=== PATIENT | female | born 1935 | race Caucasian/White ===

== ENCOUNTER 2016-10-07 22:27 | Emergency (ER) | payer OTHER ==
--- NOTE | 2016-10-07 23:00 | EDPHY ---
HPI/HX/ROS/PE/MDM Narrative: Chief complaint: Fall HPI: 80-year-old woman sustained a mechanical fall at her residence. Patient states that she was reaching for something when she fell from standing. States she landed on the floor. Patient is not currently oriented she is alert and is a poor historian. She is not able to recall events. Currently is complaining of pale and her coccyx. Denies headache. No neck pain. No numbness or weakness. Chest pain shortness of breath. No abdominal pain. ROS: Unobtainable secondary to the patient's confusion Physical exam: Gen: Awake, Alert, No Distress HEENT: 2 cm laceration on the right cheek, not through and through Nose: no rhinorrhea Eyes: PERRLA, EOMI Mouth: Moist mucosa Neck: Supple, no JVD Chest: nontender, lungs clear to auscultation Heart: S1, S2 normal, no murmur Abd: Soft, non-tender, no guarding Back: no CVA tenderness, no midline tenderness Ext: no edema, non-tender Skin: no rash Neuro: CN II-XII intact, Sensation grossly intact, Strength 5/5 in bilateral upper and lower extremities ED Course: CT head: Negative per Dr. Carter CT neck: Negative per Dr. Carter. Pelvis x-ray: No acute fractures Procedure: Laceration repair. Verbal consent was obtained from the patient. The 2 cm laceration on the right cheek was anesthetized in the usual fashion. The wound was irrigated, draped and explored to its base with a gloved finger. There were no deep structures involved. No tendon injury was identified. The wound was repaired with 3, 5-0 fast-absorbing gut sutures. The wound repair was uncomplicated. The procedure was performed by myself. Patient's daughters at the bedside. She states the patient is in her normal state of mentation and health. She will obtain urinalysis to make sure she does not have urinary tract infection given that she was admitted here several months ago for the same. If this is negative patient will be able to go home in the care of her daughter. - Data Points Medications Given: Discontinued Medications Ondansetron HCl (Zofran) 4 mg IVP EDNOW ONE Stop: 10/08/16 00:11 Last Admin: 10/08/16 00:10 Dose: 4 mg General Time Seen by Provider: 10/07/16 22:51 Initial Vital Signs: Initial Vital Signs Temperature (C) 36.9 C 10/07/16 22:27 Heart Rate 97 10/07/16 22:27 Respiratory Rate 16 10/07/16 22:27 Blood Pressure 130/60 H 10/07/16 22:27 O2 Sat (%) 89 L 10/07/16 22:27 O2 Delivery Mode Room Air Allergies/Adverse Reactions: Penicillins Allergy (Verified 07/25/14 20:17) Home Medications: Medication Instructions Recorded DULoxetine [Cymbalta 60 MG (*)] 60 mg PO BID 07/24/15 Meclizine HCl [Meclizine HCl 12.5 12.5 mg PO TID PRN 07/24/15 mg (*)] Simvastatin [Zocor] 40 mg PO HS 07/24/15 Ascorbic Acid [Vitamin C 500 mg 500 mg PO DAILY 08/31/15 (*)] Calcium Carbonate [Oyster Shell 500 mg PO BID 08/31/15 Calcium 500 mg (*)] Ferrous Sulfate [Ferrous Sulf 325 325 mg PO BIDMEAL 08/31/15 MG (*)] Lidocaine 5% [Lidoderm 5% Patch 1 ea TD DAILY PRN 08/31/15 (*)] Losartan Potassium [Cozaar 50 mg 50 mg PO DAILY 08/31/15 (*)] Omeprazole [Prilosec] 40 mg PO DAILY 08/31/15 Warfarin Sodium [Coumadin 3MG (*)] 1.5 mg PO SUTU@16 08/31/15 Warfarin Sodium [Coumadin 3MG (*)] 3 mg PO MOWETHFRSA@16 08/31/15 Acetaminophen [Tylenol 325mg (*)] 650 mg PO Q4 PRN #0 tab 09/04/15 Calcium Carbonate [Tums 500MG (*)] 500 - 1,000 mg PO Q2 PRN #0 tabchew 09/04/15 Aripiprazole 2 mg PO HS 05/09/16 Besifloxacin HCl [BESIVANCE] 1 drop RTEYE BID 05/09/16 Brimonidine Tartrate 1 drop RTEYE BID 05/09/16 Cyanocobalamin [Vitamin B12 (*)] 1,000 mcg PO DAILY 05/09/16 Losartan Potassium [Cozaar] 100 mg PO HS 05/09/16 Methylphenidate HCl 2.5 mg PO BIDDIUR 05/09/16 Nitrofurantoin Monohyd/M-Cryst 100 mg PO BID PRN 05/09/16 [Nitrofurantoin [place]-Macrocrystal] Timolol 0.5% [TIMOPTIC 0.5% (*)] 1 drops RTEYE BID 05/09/16 Acetaminophen [Tylenol 325mg (*)] 650 mg PO Q4 PRN #0 tab 05/12/16 Polyethylene Glycol 3350 [Miralax 17 gm PO DAILY PRN #0 pkt 05/31/16 17 gm (*)] Sennosides/Docusate Sodium 1 - 2 tab PO BID #0 tab 05/31/16 [Senokot-S] Vancomycin [Vancocin Oral Liquid] 125 mg PO QID #40 udl 05/31/16 Departure - Departure Disposition: Home, Routine, Self-Care Clinical Impression: Fall, Facial laceration Condition: Good Instructions: Fall Prevention for Older Adults (ED), Care For Your Absorbable Stitches (ED), Facial Laceration (ED) Additional Instructions: Use sutures are absorbable and do not need to be removed. Follow up with your primary care doctor in 3-4 days if you're not feeling well. Return to the emergency department for any concerns. Referrals: Rebekah Jackson MD [Primary Care Provider] - As per Instructions
[2016-10-07] MEDS ORDERED: ACETAMINOPHEN 500 MG TAB ONE (23:09)
[2016-10-07 23:16] VITALS: PULSE 97; RESP 16
--- NOTE | 2016-10-07 23:39 | CT ---
CT Brain Without Contrast 2328 hours History: Recent fall. Closed head injury. Rule out intracranial hemorrhage. Technique: Axial computed tomographic images of the brain without contrast. Images were reconstruct ed down to 1.25 mm slice thickness. Dose reduction techniques were utilized. Comparison the prior CT study of May 28, 2016. Findings: Ventricles, cisterns, and sulci are widened consistent with stable moderate atrophy. No hy drocephalus, masses, midline shift/herniation, or subdural hematomas. No intraparenchymal hemorrhage or mass effect. Stable moderate hypodensities are seen in the white matter of bilateral cerebral justina spheres. There is no acute peripheral cerebral infarct seen. Arteriosclerotic calcifications are no noble associated with distal ICA in the parasellar location bilaterally. Bone windows demonstrate no displaced fractures. Paranasal sinuses and mastoid air cells are clear. Impression: 1. Moderate atrophy. 2. No hemorrhage, mass effect, or definite acute peripheral infarct. 3. Mild to moderate microvascular ischemic disease. These findings were discussed by telephone with Dr. Prakash Soliz at 2344 hrs.
--- NOTE | 2016-10-07 23:44 | CT ---
CT Cervical Spine 2328 hours History: Recent trauma. Evaluate for possible cervical spine injury. Technique: Spiral imaging was obtained from the base of skull to the upper chest. Images were reconst ructed at 1.25 mm slice thickness. Images were reconstructed in multiple planes. Dose reduction techn iques were utilized. Findings: Vertebral body heights are well maintained. There are no subluxations. No fractures are see n. There is about 2 mm of anterior subluxation of C3 on C4. No additional subluxations are identified . There is reversal of the normal lordosis of the mid cervical spine that is probably chronic. Mild i ntervertebral disk space narrowing is present at C3-C4 and marked at C4-C5 with moderate to marked di sk space narrowing at C5-C6 and at C6-C7. There is mild bilateral facet hypertrophy at C2-C3, right-s ided facet fusion at C3-C4, moderate right-sided facet hypertrophy at C4-C5 and mild bilaterally at C 5-C6. There is also some mild to moderate bilateral facet hypertrophy at C7-T1.. Paravertebral soft t issues demonstrate no significant abnormality. Impression: 1. No acute osseous and amount is seen about the cervical spine. 2. Degenerative disk disease mid to lower cervical spine with findings most prominent at C4-C5 as det gaurang above. 3. Facet hypertrophy as detailed above. These findings were discussed by telephone with Dr. Prakash Soliz at 2344 hrs.
--- NOTE | 2016-10-07 23:46 | DX ---
Pelvis x-ray supine 2250 hours. History: Recent fall. Findings: Osseous structures appear to be intact without evidence of fracture. Hip joint spaces are n ormal as well as SI joints and symphysis. Mild degenerative changes are noted of the lower lumbar spi ne. Soft tissues are unremarkable. Impression: No acute osseous abnormality is seen about the pelvis.
[2016-10-07] MEDS ORDERED: ONDANSETRON 4 MG/2 ML VIAL ONE (23:57)
[2016-10-08] MEDS ORDERED: ONDANSETRON 4 MG/2 ML VIAL IVP ONE (00:10)
[2016-10-08 00:58] VITALS: BP 111/65; TEMP 98.1; O2SAT 96
[2016-10-08 01:01] LABS: COLOR AMBER; LEUKOCYTE ESTERASE,URINE TRACE (NEGATIVE); NITRITE,URINE NEGATIVE (NEGATIVE)
[2016-10-08 01:10] LABS: AMORPHOUS PRESENT /hpf (NONE-1+); BACTERIA TRACE /hpf (NONE SEEN); MUCUS TRACE /lpf (NONE-1+)
== END 2016-10-08 02:14 | disposition home or self-care (01) ==
LOC: EDUNIT#
PROC: 0HQ1XZZ Repair Face Skin, External Approach (ICD-10-PCS; principal; 2016-10-07)
DX: S01.411A Laceration without foreign body of right cheek and temporomandibular area, initial encounter (principal); Z79.01 Long term (current) use of anticoagulants; W18.39XA Other fall on same level, initial encounter; Y92.009 Unspecified place in unspecified non-institutional (private) residence as the place of occurrence of the external cause
CPT/HCPCS: 12011; 70450; 72125; 72170; 96374; 99285; J2405

== ENCOUNTER 2016-10-14 01:19 | Inpatient (IN) | payer OTHER ==
[2016-10-14] MEDS ORDERED: ONDANSETRON 4 MG/2 ML VIAL IVP ONE (01:22)
[2016-10-14] MEDS ORDERED: NS 1,000 ML IV ONE (01:22)
--- NOTE | 2016-10-14 01:22 | EDPHY ---
H & P HPI/ROS: HPI CHIEF COMPLAINT: Abdominal pain, nausea HISTORY OF PRESENT ILLNESS: This patient very pleasant 80-year-old female she presents to the emergency room by EMS from [facility], she has vascular dementia and is very demented. She presents emergency room with abdominal pain and reported vomiting. EMS reports there is no evidence of vomiting at her living facility. Her main complaint is abdominal pain. It is unclear exactly how long this has been going on. It is noted she is tender here in the emergency room diffusely to her abdomen. She does have hyperactive bowel sounds. EMS reports that they were called for abdominal pain with nausea vomiting. Unclear exactly how long this has been going on. The patient does not provide a very accurate history. History review of systems limited due to the patient's mental state. Past Medical History: Vascular dementia, GERD, hypertension, hyperlipidemia, CVA, TIA, folic show, chronic back pain, thyroid disease, C diff colitis, urinary tract infection, chronic hypoxia on 2 L nasal cannula Past Surgical History: thyroidectomy Social History: lives at [facility] Family History: Noncontributory ROS REVIEW OF SYSTEMS: A comprehensive 10 point review of systems is otherwise negative aside from elements mentioned in the history of present illness. Exam Constitutional triage nursing summary reviewed, vital signs reviewed, awake/ alert. Eyes normal conjunctivae and sclera, EOMI, PERRLA. HENT normal inspection, atraumatic, dry mucous membranes, no epistaxis, neck supple/ no meningismus, no raccoon eyes. Respiratory clear to auscultation bilaterally, normal breath sounds, no respiratory distress, no wheezing. Cardiovascular rate normal, regular rhythm, no murmur, no edema, distal pulses normal. Gastrointestinal mild tenderness to palpation throughout all quadrants, firm abdomen, hyperactive bowel sounds , no rebound, no guarding, , no distension, no pulsatile mass. Genitourinary no CVA tenderness. Musculoskeletal no midline vertebral tenderness, full range of motion, no calf swelling, no tenderness of extremities, no meningismus, good pulses, neurovascularly intact. Skin pink, warm, & dry, no rash, skin atraumatic. Neurologic awake, alert and oriented x 3, AAOx3, moves all 4 extremities equally, motor intact, sensory intact, CN II-XII intact, normal cerebellar, normal vision, normal speech. Psychiatric normal mood/affect. Heme/Lymph/Immune no lymphadenopathy. Differential diagnosis includes but is not limited to and in no particular order : Bowel obstruction, perforated bowel, ischemic colitis, C diff, appendicitis , gallbladder disease, diverticulitis, colitis, enteritis, perforated viscus, gastritis, GERD, esophagitis, urinary tract infection, pyelonephritis, kidney stones Medical Decision Making: This patient had an IV established obtain blood work, patient be hydrated IV fluids IV Zofran for nausea. Patient had a CT scan abdomen pelvis with IV contrast. Re-evaluation: CT scan of the abdomen pelvis with IV contrast . The results of the study are this shows large amount of intra-abdominal free air. There is significant stranding around the sigmoid colon most likely the nidus for intra-abdominal perforated viscus. The study was read by Dr. Rodrigo potts I viewed the images myself on the PACS system. 0306: at this time I have contacted Dr. Cuenca who will come and see and evaluate the patient. The patient's and p. o.. It is noted this patient is on Coumadin with an INR above 2. I have ordered this patient PCC. This will reverse her Coumadin so that she can have surgery. I have also ordered her IV Invanz for intra-abdominal free air infection. This time this patient is hemodynamically stable no acute distress. I did update daughter at bedside. Source: Patient, EMS - Medical/Surgical History Hx Asthma: No Hx Chronic Respiratory Disease: No Hx Diabetes: No Hx Cardiac Disease: No Hx Renal Disease: No Hx Cirrhosis: No Hx Alcoholism: No Hx HIV/AIDS: No Hx Splenectomy or Spleen Trauma: No Other PMH: pmh- falls, with back injury, depression, htn, prilosec, osteoperosis , fibromylagia, generalized weakness, "mild CVA," GERD, atrial septal defect. psh- parathyroidectomy - Social History Smoking Status: Former smoker Constitutional: Initial Vital Signs O2 Sat (%) 94 10/14/16 01:22 O2 Delivery Mode Nasal Cannula O2 (L/minute) 2 Allergies/Adverse Reactions: Penicillins Allergy (Verified 07/25/14 20:17) Home Medications: Medication Instructions Recorded Meclizine HCl [Meclizine HCl 12.5 12.5 mg PO TID PRN 07/24/15 mg (*)] Simvastatin [Zocor] 40 mg PO HS 07/24/15 Ferrous Sulfate [Ferrous Sulf 325 325 mg PO BIDMEAL 08/31/15 MG (*)] Losartan Potassium [Cozaar 50 mg 50 mg PO DAILY 08/31/15 (*)] Omeprazole [Prilosec] 40 mg PO DAILY 08/31/15 ARIPiprazole [Abilify 5 mg (*)] 5 mg PO DAILY 10/14/16 Acetaminophen [Tylenol 325mg (*)] 2 tab PO Q4 PRN 10/14/16 Ascorbic Acid [Vitamin C 500 mg 500 mg PO DAILY 10/14/16 (*)] Bisacodyl [Dulcolax] 10 mg RC DAILY PRN 10/14/16 Brimonidine 0.15% [ALPHAGAN P 1 drops RTEYE BID 10/14/16 0.15% (RX)] Calcium Carbonate [Calcium] 500 mg PO BIDMEAL 10/14/16 Calcium Carbonate [Tums 500MG (*)] 500 mg PO DAILY PRN 10/14/16 Cyanocobalamin [Vitamin B12 (*)] 1,000 mcg PO DAILY 10/14/16 DULoxetine [Cymbalta 60 MG (*)] 60 mg PO BID 10/14/16 Hydrochlorothiazide [HCTZ (*)] 25 mg PO DAILY 10/14/16 Lidocaine 5% [Lidoderm 5% Patch 1 ea TD DAILY 10/14/16 (*)] Losartan Potassium [Cozaar] 100 mg PO HS 10/14/16 Multivitamins [Multivitamin (*)] 1 each PO DAILY 10/14/16 Prochlorperazine Maleate 10 mg PO Q6 PRN 10/14/16 [Compazine 10mg (*)] Warfarin Sodium [Coumadin 2MG (*)] 2 mg PO SUTUWETHSA@1600 10/14/16 Warfarin Sodium [Coumadin 4MG (*)] 4 mg PO MOFR@1600 10/14/16 Medical Decision Making - Data Points Laboratory Results: Laboratory Results 10/14/16 01:38 10/14/16 01:38 Medications Given: Discontinued Medications Aripiprazole (Abilify) 2 mg PO DAILY [facility] Stop: 04/12/17 08:59 Last Admin: 10/14/16 08:15 Dose: Not Given Brimonidine/Timolol (Combigan) 1 drops RTEYE BID TIEN Stop: 04/12/17 08:59 Last Admin: 10/14/16 10:12 Dose: Not Given Dextrose (Dextrose 50% Syringe) 25 gm IVP ONCE ONE Stop: 10/17/16 05:31 Last Admin: 10/17/16 05:34 Dose: 25 gm Enoxaparin Sodium (Lovenox) 40 mg SC DAILY TIEN Stop: 04/13/17 08:59 Last Admin: 10/16/16 10:20 Dose: 40 mg Fentanyl (Sublimaze) 25 mcg IVP EDNOW ONE Stop: 10/14/16 02:23 Last Admin: 10/14/16 02:50 Dose: 25 mcg Furosemide (Lasix Injection) 20 mg IVP ONCE ONE Stop: 10/17/16 10:53 Last Admin: 10/17/16 11:22 Dose: 20 mg Sodium Chloride (Ns) 1,000 mls @ 0 mls/hr IV ONCE ONE PRN Reason: Wide Open Stop: 10/14/16 01:23 Last Admin: 10/14/16 01:40 Dose: 1,000 mls Ertapenem 1 gm/ Sodium (Chloride) 100 mls @ 200 mls/hr IV EDNOW ONE PRN Reason: Protocol Stop: 10/14/16 03:26 Last Admin: 10/14/16 04:22 Dose: 100 mls Prothrombin Complex Concent ( Human) 1,500 unit/ IV Miscellaneous Supplies 60 mls @ 0 mls/hr IV ONCE ONE; Per Protocol PRN Reason: Protocol Stop: 10/14/16 03:31 Last Admin: 10/14/16 04:12 Dose: 60 mls Pantoprazole Sodium 40 mg/ (Sodium Chloride) 100 mls @ 200 mls/hr IV DAILY TIEN Stop: 04/12/17 08:59 Last Admin: 10/16/16 11:06 Dose: Not Given Lactated Ringer's (Lr) 1,000 mls @ 125 mls/hr IV CONT TIEN Stop: 04/12/17 06:29 Last Admin: 10/14/16 08:27 Dose: 1,000 mls Potassium Chloride (Potassium Cl 10 Meq (Premix)) 100 mls @ 50 mls/hr IV Q2H TIEN Stop: 10/14/16 14:29 Last Admin: 10/14/16 12:57 Dose: Not Given Potassium Chloride (Potassium Cl 10 Meq (Premix)) 100 mls @ 100 mls/hr IV Q1H TIEN Stop: 10/14/16 13:29 Last Admin: 10/14/16 12:57 Dose: Not Given Magnesium Sulfate (Magnesium Sulf 2 Gm (Premix)) 50 mls @ 50 mls/hr IV ONCE ONE Stop: 10/14/16 11:11 Last Admin: 10/14/16 12:57 Dose: Not Given Potassium Chloride (Potassium Cl 10 Meq (Premix)) 100 mls @ 50 mls/hr IV Q2H TIEN Stop: 10/14/16 14:13 Last Admin: 10/14/16 12:57 Dose: Not Given Potassium Chloride (Potassium Cl 10 Meq (Premix)) 100 mls @ 50 mls/hr IV Q2H [facility] Stop: 10/14/16 15:59 Last Admin: 10/14/16 15:35 Dose: 100 mls Magnesium Sulfate (Magnesium Sulf 2 Gm (Premix)) 50 mls @ 50 mls/hr IV ONCE ONE Stop: 10/14/16 12:47 Last Admin: 10/14/16 12:56 Dose: 50 mls Albumin Human (Alburx 5) 500 mls @ 0 mls/hr IV ONCE ONE PRN Reason: As Directed Stop: 10/14/16 14:43 Last Admin: 10/14/16 15:00 Dose: 500 mls Sodium Chloride (Ns) 500 mls @ 1,500 mls/hr IV ONCE ONE Stop: 10/14/16 15:01 Last Admin: 10/14/16 14:56 Dose: 500 mls Potassium Chloride/Sodium Chloride (Ns W/ 20 Kcl/L) 1,000 mls @ 75 mls/hr IV CONT TIEN Stop: 04/12/17 14:44 Last Admin: 10/17/16 08:51 Dose: 1,000 mls Ondansetron HCl (Zofran) 4 mg IVP EDNOW ONE Stop: 10/14/16 01:23 Last Admin: 10/14/16 02:00 Dose: 4 mg Departure - Departure Disposition: To OP Cath/Surgery Clinical Impression: Intra-abdominal free air of unknown etiology Abdominal pain Qualifiers: Abdominal location: generalized Qualifier Code: (R10.84) Generalized abdominal pain Condition: Critical
[2016-10-14] MEDS ORDERED: IOPAMIDOL (ISOVUE-300) 100 ML BTL IV ONE ×2 (01:41→13:57)
[2016-10-14 01:47] LABS: % IMMATURE GRANULYOCYTES 0.2 % (0.0-1.1); ABSOLUTE IMMATURE GRANULOCYTES 0.03 10^3/uL (0.00-0.10); ADD DIFF? NO; ADD MORPH? NO; ADD SCAN? NO; ATYPICAL LYMPHOCYTE FLAG 0 (0-99); FRAGMENT RBC FLAG 0 (0-99); HEMATOCRIT 42.8 % (38.0-47.0); HEMOGLOBIN 14.4 g/dL (12.6-16.3); LEFT SHIFT FLG 0 (0-99); LIPEMIA HEMOLYSIS FLAG 80 (0-99); MEAN CELL HEMOGLOBIN 32.2 pg (27.9-34.1); MEAN CELL HEMOGLOBIN CONCENTR. 33.6 g/dL (32.4-36.7); MEAN CELL VOLUME 95.7 fL (81.5-99.8); MEAN PLATELET VOLUME 9.4 fL (8.7-11.7); PLATELET CLUMPS FLAG 10 (0-99); PLATELET COUNT 460 10^3/uL (150-400); RED BLOOD CELL COUNT 4.47 10^6/uL (4.18-5.33); RED CELL DISTRIBUTION WIDTH 13.4 % (11.5-15.2)
[2016-10-14 01:57] LABS: INR 2.12 (0.83-1.16); PROTIME(PATIENT) 23.9 SEC (12.0-15.0)
[2016-10-14 01:58] LABS: APTT 34.9 SEC (23.0-38.0)
--- NOTE | 2016-10-14 02:00 | CPEKG ---
Heart Rate: 99 RR Interval: 606 P-R Interval: 132 QRSD Interval: 94 QT Interval: 376 QTC Interval: 483 P Roscoe: 17 QRS Roscoe: -25 T Wave Roscoe: 264 EKG Severity - BORDERLINE ECG - EKG Impression: SINUS RHYTHM EKG Impression: BORDERLINE LEFT AXIS DEVIATION EKG Impression: BORDERLINE R WAVE PROGRESSION, ANTERIOR LEADS EKG Impression: BORDERLINE T ABNORMALITIES, DIFFUSE LEADS Electronically Signed By: Tristen Stephenson 14-Oct-2016 10:56:18
[2016-10-14 02:02] LABS: ALANINE AMINOTRANSFERASE 26 IU/L (9-52); ALBUMIN 3.5 g/dL (3.5-5.0); ALKALINE PHOSPHATASE 43 IU/L (38-126); ANION GAP 15 mEq/L (8-16); ASPARTATE AMINOTRANSFERASE 19 IU/L (14-46); BILIRUBIN,TOTAL 1.1 mg/dL (0.1-1.4); BILIRUBIN-CONJUGATED 0.4 mg/dL (0.0-0.5); BILIRUBIN-UNCONJUGATED 0.7 mg/dL (0.0-1.1); CALCIUM 9.8 mg/dL (8.5-10.4); CARBON DIOXIDE 26 mEq/l (22-31); CHLORIDE 96 mEq/L (97-110); CREATININE 0.7 mg/dL (0.6-1.0); GLOMERULAR FILTRATION RATE > 60; GLUCOSE 152 mg/dL (70-100); POTASSIUM 4.2 mEq/L (3.5-5.2); SODIUM 137 mEq/L (134-144); TOTAL PROTEIN 6.1 g/dL (6.3-8.2)
[2016-10-14 02:10] LABS: TROPONIN I < 0.012 ng/mL (0-0.034)
[2016-10-14] MEDS ORDERED: fentaNYL 100 MCG/2 ML INJ IVP ONE (02:22)
[2016-10-14] MEDS ORDERED: ERTAPENEM 1 GM in NS 100 ML IV ONE (02:57)
[2016-10-14] MEDS ORDERED: *PHM DO NOT USE-KCENTRA IV 25 UNITS/KG (INR 2-3.9) PTD MISC SCH (03:15)
[2016-10-14] MEDS ORDERED: GLYCOPYRROLATE 0.2 MG/1 ML VIAL ONE (03:30)
[2016-10-14] MEDS ORDERED: LIDOCAINE 2% 5 ML SDV ONE (03:30)
[2016-10-14] MEDS ORDERED: ROCURONIUM 50 MG/5 ML VIAL ONE (03:30)
[2016-10-14] MEDS ORDERED: HUMAN PROTHROMBIN COMPLX IV ONE (03:30)
[2016-10-14] MEDS ORDERED: fentaNYL 100 MCG/2 ML INJ ONE ×2 (03:31→05:29)
[2016-10-14] MEDS ORDERED: PROPOFOL 200 MG/20 ML VIAL ONE (03:31)
[2016-10-14 03:33] LABS: COLOR YELLOW; LEUKOCYTE ESTERASE,URINE NEGATIVE (NEGATIVE); NITRITE,URINE NEGATIVE (NEGATIVE)
--- NOTE | 2016-10-14 05:14 | GHP ---
[f rep st] HISTORY AND PHYSICAL DATE OF ADMISSION: 10/14/2016 HISTORY OF PRESENT ILLNESS: The patient is an 80-year-old woman, who presented to the emergency depa rtment from [facility] with increasingly severe abdominal pain associated with vomiti ng. Her daughter is here with her and says that she has not had much of a bowel movement for some ti me, and her pain and distention were attributed to constipation, which she deals with regularly. On presentation to the emergency department, she was found to have a diffusely tender abdomen, a white c ount of 13, a lactate of 2.7. On CT scan of the abdomen and pelvis, she has severe constipation, inf lammation of the sigmoid colon, and free air consistent with perforated colitis. PAST MEDICAL HISTORY: Patent foramen ovale, gastroesophageal reflux disease, vascular dementia, hype rtension, hyperlipidemia, history of CVA and TIA, chronic back pain, hypothyroidism, history of urina ry tract infections and Clostridium difficile colitis, hypoxia with a 2 L per nasal cannula oxygen re quirement at baseline. PAST SURGICAL HISTORY: She has had a thyroidectomy. FAMILY HISTORY: She denies a family history of colon cancer or ulcerative colitis. MEDICATIONS: She takes Cymbalta 60 mg twice daily, meclizine 12.5 mg 3 times daily p.r.n., simvastat in 40 mg daily, vitamin C 500 mg daily, calcium carbonate 500 mg twice daily, ferrous sulfate 325 mg twice daily, Lidoderm patch 5% transdermally daily, Cozaar 50 mg daily, Prilosec 40 mg daily, Coumadi n 1.5 mg Sundays and Tuesdays, 3 mg Mondays, Wednesdays, , Fridays, and Saturdays, Tylenol 6 50 mg p.o. q.4 hours p.r.n. pain, Tums 500-1000 mg p.r.n. heartburn, aripiprazole 2 mg nightly, Besiv ance 1 drop right eye twice daily, brimonidine tartrate 1 drop right eye twice daily, vitamin B12 at 1000 mcg daily, Cozaar 100 mg at night, methylphenidate 2.5 mg twice daily, nitrofurantoin 100 mg twi ce daily, Timoptic 1 drop in the right eye twice daily, MiraLAX as needed, Senokot-S 1-2 tablets twic e daily. ALLERGIES: She is allergic to penicillin. SOCIAL HISTORY: She lives at [facility]. Her daughter is at the bedside. She denie d tobacco use. REVIEW OF SYSTEMS: She complained of confusion, shortness of breath, abdominal pain, nausea, vomitin g, and relatively scant bowel movements over the last several days. She denied chest pain, blood in her stool. PHYSICAL EXAM: VITAL SIGNS: Her temperature is 37, pulse 106, blood pressure 120/80, respiratory ra te is 20, she is saturating 93% on 2 L per nasal cannula. GENERAL: She is mildly confused. LUNGS: Clear to auscultation bilaterally. HEART: Regular rhythm with mild tachycardia. ABDOMEN: Diffuse ly tender to palpation with peritoneal signs. It is also distended. LABORATORY DATA: White count is 13, hematocrit 43, platelets 460. INR is 2.1. Lactate 2.7. Creati nine 0.7. ASSESSMENT AND PLAN: Perforated viscus, likely from sigmoid colitis by abdominal CT scan. She has b een given PCC to urgently reverse her anticoagulation and will be given broad-spectrum antibiotics. She will go to the assisted operating room as soon as possible for exploratory laparotomy. We discus sed the likelihood that she will require colostomy. /[id number]/MODL
[2016-10-14] MEDS ORDERED: SUGAMMADEX SODIUM 200 MG/2 ML VIAL IVP ONE (05:46)
[2016-10-14] MEDS ORDERED: ONDANSETRON 4 MG/2 ML VIAL ONE (05:59)
[2016-10-14] MEDS ORDERED: PROTOCOL POTASSIUM 1 DOSE MISC PRN (06:28)
[2016-10-14] MEDS ORDERED: PROTOCOL MAGNESIUM 1 DOSE IV PRN (06:28)
[2016-10-14] MEDS ORDERED: LR 1,000 ML IV SCH (06:30)
[2016-10-14] MEDS: HYDROmorphONE/DILAUDID 1 MG/ML SYR IVP PRN ×5 (08:12→22:39)
[2016-10-14] MEDS: DULoxetine 60 MG CAP PO SCH (08:15)
[2016-10-14] MEDS: PANTOPRAZOLE SODIUM 40 MG in NS 100 ML IV SCH (08:41)
--- NOTE | 2016-10-14 08:49 | WOCRNPDOC ---
WOCRN Advanced Assessment Note - Skin Integrity Problem, Advanced Assess Sacrum Pressure Injury Dressing Type: Open to Air Site Measurement - Head-to-Toe Length X Width X Depth (cm): 2x2x0 Pressure Injury Stage: Stage 1 Pressure Injury Present on Admit: Yes Skin Integrity Problem Comment: Right sacrum non blanching stage 1. It is quite dark and is bordering on a deep tissue injury. Offload aggressively. Place pillows above and below area. Mirror image area on left lower sacrum blanching. The location of both wounds appear to be on buttocks, but on palpation the bottom of the patient's sacrum is easily palpable and would be related to these wounds when patient is sitting for long periods of time. Coccyx Pressure Injury Dressing Type: Open to Air Site Measurement - Head-to-Toe Length X Width X Depth (cm): 2x0.5x0 Pressure Injury Stage: Stage 1 Pressure Injury Present on Admit: Yes Skin Integrity Problem Comment: Intertriginous dermatitis mixed with pressure. Will recheck in one week.
--- NOTE | 2016-10-14 08:56 | CT ---
CT Scan of the Abdomen and Pelvis (With Contrast) October 14, 2016 0239 hours Indication: Abdominal pain. Nausea and vomiting. Comparison: May 2016. Technique: 80 mL of Isovue 300 were given intravenously by machine power injection. Multidetector lical CT imaging was performed from the diaphragm to the symphysis pubis. Dose reduction techniques w ere utilized. Findings: Abdomen: Mild scarring and atelectasis are seen in both lower lobes similar in appearance. Free intra peritoneal air anteriorly in the upper abdomen subdiaphragmatic. Large hiatal hernia. Calcifications are seen in the coronary arteries indicating atherosclerotic disease. Multiple round hypodense lesion s are seen in the liver compatible with hepatic cyst similar in appearance. Gallbladder is distended without adjacent inflammatory change or wall thickening. Pancreatic duct is dilated at 5 mm. No pancr eatic mass is visualized. Spleen is unremarkable. Mass is seen in the left adrenal gland with fat sig nal intensity suggesting angiomyolipoma or possible adrenal adenoma stable in size measuring 18 x 19 mm. Right adrenal gland is normal in appearance. Parapelvic cysts are seen in the left kidney. No def inite hydronephrosis. Focal area of scarring or fat signal intensity suggesting an angiomyolipoma see n in the mid pole left kidney stable in appearance. There is evidence of atherosclerotic disease in t he abdominal aorta without evidence for aneurysmal dilatation. Pelvis: Inflammatory change is seen in the mesentery and free intraperitoneal air in the right lower quadrant along the descending and sigmoid colon. Extensive stool is seen throughout the colon. No zana dence for small bowel obstruction. Mild free fluid is seen in the cul-de-sac. No evidence for bladder calculus. Moderate anterior wedge compression deformity is seen of L1 which is stable. Multilevel de generative change is seen in the lumbar spine. Impression: 1. Free intraperitoneal air. Source appears to be from the left lower quadrant where there is inflamm atory change in the mesentery and focal areas of free air and could be a ruptured diverticulitis or c olitis. Severe constipation. 2. Stable left adrenal mass which could represent an adrenal adenoma or angiomyolipoma. 2. Scarring at both lung bases stable in appearance. 4. Large hiatal hernia stable in appearance. 5. Stable chronic anterior wedge compression deformity of L1. 6. Other chronic findings as above. Results called to Dr. Morales Thomas at 0259 hours on October 14, 2016.
[2016-10-14] MEDS ORDERED: BRIMONIDINE/TIMOLOL 5 ML OPHT.BTL RTEYE SCH (09:00)
[2016-10-14] MEDS ORDERED: ARIPiprazole 2 MG TAB PO SCH (09:00)
--- NOTE | 2016-10-14 09:25 | GOP ---
[f rep st] OPERATIVE REPORT DATE OF OPERATION: SURGEON: Julieth Cuenca MD PREOPERATIVE DIAGNOSIS: Perforated viscus. POSTOPERATIVE DIAGNOSIS: Perforated viscus. PROCEDURE PERFORMED: Richard type procedure with segmental resection of sigmoid colon, descending c olostomy, and oversewing of the rectal stump. FINDINGS: Perforated sigmoid colitis, possibly diverticulitis. SPECIMENS: Peritoneal fluid sent for Gram stain and culture. ESTIMATED BLOOD LOSS: 100 mL. INDICATIONS: The patient is an 80-year-old woman who presented to the emergency department with justin ral days of increasing abdominal pain, which had become diffuse and accompanied by nausea and vomitin g. She was found, on presentation to the emergency department, to have peritonitis. White count of 13, lactate of 2.7, and on CT scan of the abdomen and pelvis, free air, with evidence of sigmoid coli tis. She was treated with PCC for anticoagulation reversal. Invanz was given therapeutically, and s he was taken to the operating room for exploratory laparotomy. DESCRIPTION OF PROCEDURE: After informed consent was obtained and therapeutic antibiotics were teodora nued, the patient was taken to the operating room, placed in a supine position. SCDs were placed to bilateral lower extremities. General anesthesia was administered, and she was prepped and draped in a sterile fashion. Prior to prepping and draping, a Flores catheter was inserted. After an appropria te surgical pause, a vertical midline incision was made using a 10 blade, and this was extended using Bovie electrocautery. Fecopurulent fluid was suctioned from the abdominal cavity and sent for Gram stain and culture. The Bonnie retractor was placed. Thickening and inflammation of the sigmoid col on was noted with an associated perforation, possibly from diverticulitis. The sigmoid colon was dis sected from its adhesive attachments to the left lateral abdominal sidewall, and the peritoneum was s cored along the white line of Toldt. This incision was extended cephalad around the splenic flexure, medializing the colon. The inflamed portion of sigmoid colon was noted to have the perforation. Di stal and proximal margins of resection were chosen proximally at viable descending colon and proximal ly where the tenia coalesced to form the rectum. Windows were created in the mesocolon and mesorectu m at these sites. A ERICK stapling device was used to transect the colon and rectum at these sites, an d the mesocolon was serially clamped, transected, and ligated using 2-0 Vicryl ties. The specimen wa s passed off and sent to Pathology for permanent assessment. The abdomen was noted to be hemostatic. It was irrigated copiously using warm normal saline and suctioned again, noting hemostasis. The mi dline incision was closed using #1 PDS suture. The skin was closed using raquel. Prior to abdomina l wall closure, incisions were made in the anterior and posterior sheaths, with care to spread the re ctus fibers. The descending colon was delivered through this abdominal wall defect, which passed 3 f ingers easily. Once the midline was closed, this was covered with Telfa and 4 x 4 gauzes and clean t owel. The colostomy was then matured, anchoring the colon at the fascia at 4 sites using 3-0 Vicryl suture, followed by colostomy maturation using interrupted 3-0 Vicryl sutures. A colostomy appliance was placed. Once the patient is awakened from anesthesia, she will be extubated and taken to the [facility] anesthesia recovery unit. /[id number]/MODL
[2016-10-14 09:28] LABS: HEMATOCRIT 43.5 % (38.0-47.0); HEMOGLOBIN 14.5 g/dL (12.6-16.3); LIPEMIA HEMOLYSIS FLAG 80 (0-99); MEAN CELL HEMOGLOBIN 32.2 pg (27.9-34.1); MEAN CELL HEMOGLOBIN CONCENTR. 33.3 g/dL (32.4-36.7); MEAN CELL VOLUME 96.7 fL (81.5-99.8); PLATELET COUNT 457 10^3/uL (150-400); RED CELL DISTRIBUTION WIDTH 13.4 % (11.5-15.2)
[2016-10-14 09:55] LABS: ANION GAP 12 mEq/L (8-16); CARBON DIOXIDE 23 mEq/l (22-31); CHLORIDE 104 mEq/L (97-110); CREATININE 0.7 mg/dL (0.6-1.0); GLOMERULAR FILTRATION RATE > 60; GLUCOSE 118 mg/dL (70-100); MAGNESIUM 1.4 mg/dL (1.6-2.3); POTASSIUM 3.7 mEq/L (3.5-5.2); SODIUM 139 mEq/L (134-144)
[2016-10-14] MEDS ORDERED: MAGNESIUM SULF 2 GM/WATER 50 ML IV ONE ×2 (10:12→11:48)
[2016-10-14] MEDS ORDERED: POTASSIUM Cl (KCl) 100 ML IV SCH ×2 (10:14→10:30)
[2016-10-14] MEDS: POTASSIUM Cl (KCl) 100 ML IV SCH ×3 (12:57→15:35)
[2016-10-14] MEDS ORDERED: ALBUMIN 5% 500 ML IV ONE (14:42)
[2016-10-14] MEDS ORDERED: NS 500 ML IV ONE (14:42)
--- NOTE | 2016-10-14 17:35 | DX ---
AP Portable Chest October 14, 2016 Indication: Evaluate line placement. Findings: The right-sided PICC terminates in the SVC. The patient has a large hiatal hernia, and th e NG tube terminates in the stomach, although it looks like it is going off towards the left lower lo be. The lungs are otherwise relatively clear, with perhaps minimal atelectasis in the left lower lob e. Impression: Right-sided PICC in good position.
--- NOTE | 2016-10-14 18:32 | IR ---
Imaging Guided Peripherally Inserted Central Catheter History: Abdominal sepsis. Prophylactic Antibiotic: Cefazolin was not ordered and administered for antimicrobial prophylaxis be cause it was not medically necessary for this procedure. VTE Prophylaxis: There is not an order for VTE prophylaxis to be given within 24 hours after procedu re end time because it was not medically necessary for this procedure. Crosscutting Measure: Patient's current list of medications including all known prescriptions, over- the-counters, herbals, and vitamin/mineral/dietary supplements are reviewed. Medications' name, dosa ge, frequency, and route of administration are confirmed. Patient is a non-smoker. Technique: This procedure is performed at patient's bedside. No fluoroscopy was utilized. Following i nformed consent, the right arm was prepped and draped in sterile fashion. 1% Xylocaine was used for l ocal anesthetic. All elements of maximal sterile barrier technique including cap, mask, sterile alka n, sterile gloves, large sterile sheet, hand hygiene, and 2% chlorhexidine for cutaneous antisepsis, followed. Ultrasound evaluation of potential access site was performed. After successfully identifying a patent vessel, ultrasound guidance was used to puncture the vein. A permanent recording was created for the patient's record. Ultrasound transducer was placed in sterile sleeve and used for real-time imaging guidance over steri le gel to enter the basilic vein. 0.018 measuring wire was passed centrally. A skin pedro luis with scalpel blade was followed by removing the access needle. A 5 Danish peel-away sheath was followed by a 5 F rench double-lumen central catheter, trimmed to 38 cm length. The tip of the catheter was positioned centrally and the guidewire removed. The hub of the catheter was fixed to the skin using a sterile S tatLock adhesive device, and a sterile dressing was applied. The catheter was irrigated. Fluoroscopy: 0 min Dose: 0 mGy Exposures: 0 images Impression: 5 Danish double lumen peripherally inserted central catheter. Chest x-ray to follow to e valuate tip placement.
[2016-10-14 20:10] LABS: POTASSIUM 4.1 mEq/L (3.5-5.2)
[2016-10-14] MEDS: BRIMONIDINE 0.15% 5 ML OPHT.BTL RTEYE SCH (22:11)
--- NOTE | 2016-10-14 22:19 | GCON ---
[f rep st] CONSULTATION CRITICAL CARE CONSULTATION DATE OF CONSULTATION: 10/14/2016 REASON FOR CONSULTATION: Intensive care unit evaluation and medical management following abdominal s urgery. HISTORY: The patient is an 80-year-old, who presented yesterday with an acute abdomen. She was foun d to have a perforated bowel. She was taken to surgery by Dr. Cuenca. She was found to have a perfo rated sigmoid colon likely secondary to diverticulitis with stool in her abdomen. A segmental sigmoi d resection was done with a colostomy and over-sewing of the rectal stump. Following surgery, she glasgow s done relatively well. She has been kept in the intensive care unit. Blood pressure has been good, she is mildly tachycardic. She denies significant pain. PAST MEDICAL HISTORY: Remarkable for dementia, systemic hypertension, hyperlipidemia, previous strok e, history of urinary tract infections, history of C difficile colitis, gastroesophageal reflux disea se, hyperlipidemia, and a PFO. MEDICATIONS: On admission included Ritalin, Cymbalta, Prilosec, high-dose Cozaar, iron, hydrochlorot hiazide, Coumadin, Zocor, Abilify, and p.r.n. medications. DRUG ALLERGIES: Penicillin. SOCIAL HISTORY: The patient lives in assisted living. Tobacco and alcohol are negative. REVIEW OF SYSTEMS: Ten point review of systems negative except as outlined above. PHYSICAL EXAMINATION: GENERAL: Reveals an elderly woman who is lying fairly comfortably in bed. e is slightly lethargic, arousable, and responsive. VITAL SIGNS: Blood pressure is approximately 12 5/75, heart rate 110 with sinus rhythm on the monitor. On 2 L saturations are 94%. Respiratory rate is 12. CVP is 5. HEENT: Remarkable for dry mucous membranes. Nasal cannula oxygen is in place. There is no obvious jugular venous distention. CHEST: Clear. Breath sounds are diminished at the b ases. HEART: Tachycardic with a soft systolic murmur, no gallop. P2 appears normal. ABDOMEN: Pos toperative and tender. No significant stool is in the colostomy bag. A Flores catheter is in place. A grade 1 sacral decubitus was present on admission. Urine output is present, but somewhat on the l ow side. EXTREMITIES: Remarkable for SCDs being in place. There is no significant edema. LABORATORY DATA: White blood cell count is 6800, hematocrit 43. Platelets are 457,000. INR is 2.12 , PTT 35. Venous lactate 4.7. Sodium is 139, potassium 3.7, BUN 21 with a creatinine of 0.7. Gluco se 118, magnesium 1.4, calcium 9.0. Albumin is 3.5. LFTs are normal. ASSESSMENT: 1. Status post abdominal perforation and repair. 2. Peritonitis. 3. Lactic acidosis. Likely secondary to operative issues related to her gastrointestinal tract. Th ere is no evidence of significant sepsis at this time. Blood pressures are excellent. 4. History of multiple medical problems as outlined above in the history of present illness. PLAN AND RECOMMENDATIONS: The patient will be kept in the intensive care unit. Intravenous fluids w ill be continued. Ertapenem will be given. Enoxaparin will be continued for DVT prophylaxis and jordan toprazole given for GI prophylaxis. Appropriate pain control will be maintained. The patient will b e kept n.p.o. for now. TPN may or may not be required depending on when her GI tract returns to func tion. The patient will be kept in the intensive care unit. I will change her from medical-surgical status to step-down unit status as the patient is requiring significant care and has multiple issues postope ratively at this time. Pain control will be maintained, intravenous fluid continued, ertapenem teodora nued, etc. as outlined above. Laboratory will be followed. Cultures will be awaited. /[id number]/MODL
[2016-10-14] MEDS: NS W/ 20 KCl/L 1,000 ML IV SCH (22:43)
[2016-10-15] MEDS: HYDROmorphONE/DILAUDID 1 MG/ML SYR IVP PRN ×8 (00:40→22:30)
[2016-10-15 04:58] LABS: ADD MORPH? NO; ADD SCAN? YES; ATYPICAL LYMPHOCYTE FLAG 0 (0-99); FRAGMENT RBC FLAG 0 (0-99); HEMATOCRIT 30.9 % (38.0-47.0); HEMOGLOBIN 10.1 g/dL (12.6-16.3); LIPEMIA HEMOLYSIS FLAG 80 (0-99); MEAN CELL HEMOGLOBIN 31.9 pg (27.9-34.1); MEAN CELL HEMOGLOBIN CONCENTR. 32.7 g/dL (32.4-36.7); MEAN CELL VOLUME 97.5 fL (81.5-99.8); PLATELET CLUMPS FLAG 10 (0-99); PLATELET COUNT 263 10^3/uL (150-400); RED BLOOD CELL COUNT 3.17 10^6/uL (4.18-5.33); RED CELL DISTRIBUTION WIDTH 13.8 % (11.5-15.2)
[2016-10-15 05:04] LABS: LEFT SHIFT FLG 290 (0-99)
[2016-10-15 05:10] LABS: ANION GAP 8 mEq/L (8-16); CALCIUM 8.4 mg/dL (8.5-10.4); CARBON DIOXIDE 25 mEq/l (22-31); CHLORIDE 108 mEq/L (97-110); CREATININE 0.6 mg/dL (0.6-1.0); GLOMERULAR FILTRATION RATE > 60; GLUCOSE 95 mg/dL (70-100); POTASSIUM 4.4 mEq/L (3.5-5.2); SODIUM 141 mEq/L (134-144)
[2016-10-15 05:36] LABS: ADD DIFF? YES; SCAN POSITIVE
[2016-10-15 05:42] LABS: GIANT PLATELETS PRESENT; PLATELET ESTIMATE ADEQUATE (ADEQ)
[2016-10-15] MEDS: NS W/ 20 KCl/L 1,000 ML IV SCH ×2 (06:44→15:44)
[2016-10-15] MEDS: BRIMONIDINE 0.15% 5 ML OPHT.BTL RTEYE SCH ×2 (09:41→20:02)
[2016-10-15] MEDS: ENOXAPARIN 40 MG/0.4 ML SYR SC SCH (09:43)
[2016-10-15] MEDS: DULoxetine 60 MG CAP PO SCH (09:44)
[2016-10-15] MEDS: ARIPiprazole 5 MG TAB PO SCH (09:44)
[2016-10-15] MEDS: PANTOPRAZOLE SODIUM 40 MG in NS 100 ML IV SCH (09:46)
[2016-10-15] MEDS: ERTAPENEM 1 GM in NS 100 ML IV SCH (11:18)
--- NOTE | 2016-10-15 12:00 | PDINTPN ---
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 Doing well. Pain under good control. Peritonitis secondary to 1. Ertapenem to be restarted. Acute blood-loss anemia: Hematocrit 30. No evidence of active bleeding currently. Will follow. History of anticoagulation with Coumadin. INR elevated yesterday. Pending today. She will need Lovenox at least prophylactically initially, then bridge. Coumadin to be restarted once she is taking p.o. does. Nutrition: Still NPO with little in the way of GI function. Consider TPN. Will discuss with surgery. Metabolic: On replacement protocols. GI prophylaxis: Pantoprazole. History of systemic hypertension, hyperlipidemia, dementia, etc. Blood pressure is fine off of medications currently. Plan: Continue present care in the intensive care unit as a step-down patient. If she does well throughout the day we can consider transferring her to medical-surgical status later today. Consider TPN. Follow laboratory and clinical status. Invanz to be restarted. 30 minutes of clinic time spent directly with the patient. Discussed with nursing, pharmacy and the ICU multi disciplinary team. Subjective: Doing okay. Complains of some abdominal discomfort as expected. Denies significant shortness of breath. Objective: Vital Signs Temp Pulse Resp BP Pulse Ox 36.5 C 106 H 20 136/78 H 94 10/15/16 08:29 10/15/16 08:29 10/15/16 08:29 10/15/16 08:29 10/15/16 08:29 Microbiology 10/14/16 05:00 Gram Stain - Final Peritoneal Fluid - Aspirate 10/14/16 05:00 Gram Stain - Final Peritoneal Fluid - Aspirate Laboratory Results 10/15/16 04:30 10/15/16 04:30 10/14/16 10/15/16 10/16/16 05:59 05:59 05:59 Intake Total 1000 3848 Output Total 910 Balance 1000 2938 PT 23.9 SEC (12.0-15.0) H 10/14/16 01:38 INR 2.12 (0.83-1.16) H 10/14/16 01:38 Laboratory Tests 10/15/16 04:30 Calcium 8.4 L Magnesium 2.0 Physical Exam - Physical Exam General Appearance: alert, no apparent distress EENT: PERRL/EOMI, other (Nasal cannula at 4 L) Neck: normal inspection (No JVD) Respiratory: lungs clear (Anteriorly), decreased breath sounds (At bases), No rales, No rhonchi Cardiac/Chest: tachycardia (Sinus) Abdomen: other (No stool in the colostomy bag), No normal bowel sounds (Quiet), No non-tender, No soft Pelvic Exam: other (Flores catheter) Skin: normal color, warm/dry Lymphatic: no adenopathy Extremities: pedal edema Neuro/Psych: no motor/sensory deficits, No cognition abnormalities ICD10 Worksheet Patient Problems: Problems Problem Status Diagnosed Abdominal pain Acute Aphasia Acute C. difficile diarrhea Acute 05/28/16 Dizziness Acute Intra-abdominal free air of unknown etiology Acute Neck pain Acute Thoracic back pain Acute Colitis Acute Dementia Acute Diarrhea Acute Failure to thrive in adult Acute Fall Acute Falls frequently Acute HTN (hypertension), malignant Acute Headache Acute Vomiting Acute Weakness generalized Acute
[2016-10-15 12:08] LABS: INR 1.67 (0.83-1.16); PROTIME(PATIENT) 19.7 SEC (12.0-15.0)
[2016-10-15 18:46] LABS: POTASSIUM 4.2 mEq/L (3.5-5.2)
[2016-10-16] MEDS: HYDROmorphONE/DILAUDID 1 MG/ML SYR IVP PRN ×8 (02:10→21:16)
[2016-10-16] MEDS: ALTEPLASE 2 MG VIAL IVP PRN (03:57)
[2016-10-16] MEDS: NS W/ 20 KCl/L 1,000 ML IV SCH ×2 (03:57→18:13)
[2016-10-16 05:11] LABS: % IMMATURE GRANULYOCYTES 0.8 % (0.0-1.1); ABSOLUTE IMMATURE GRANULOCYTES 0.09 10^3/uL (0.00-0.10); ADD DIFF? NO; ADD MORPH? NO; ADD SCAN? NO; ATYPICAL LYMPHOCYTE FLAG 0 (0-99); FRAGMENT RBC FLAG 0 (0-99); HEMATOCRIT 29.7 % (38.0-47.0); HEMOGLOBIN 9.4 g/dL (12.6-16.3); LEFT SHIFT FLG 20 (0-99); LIPEMIA HEMOLYSIS FLAG 80 (0-99); MEAN CELL HEMOGLOBIN 32.2 pg (27.9-34.1); MEAN CELL HEMOGLOBIN CONCENTR. 31.6 g/dL (32.4-36.7); MEAN CELL VOLUME 101.7 fL (81.5-99.8); PLATELET CLUMPS FLAG 10 (0-99); PLATELET COUNT 258 10^3/uL (150-400); RED BLOOD CELL COUNT 2.92 10^6/uL (4.18-5.33); RED CELL DISTRIBUTION WIDTH 13.8 % (11.5-15.2)
[2016-10-16 05:57] LABS: ANION GAP 8 mEq/L (8-16); CARBON DIOXIDE 24 mEq/l (22-31); CHLORIDE 112 mEq/L (97-110); CREATININE 0.6 mg/dL (0.6-1.0); GLOMERULAR FILTRATION RATE > 60; GLUCOSE 71 mg/dL (70-100); MAGNESIUM 1.9 mg/dL (1.6-2.3); POTASSIUM 4.6 mEq/L (3.5-5.2); SODIUM 144 mEq/L (134-144)
[2016-10-16 06:46] LABS: INR 1.35 (0.83-1.16); PROTIME(PATIENT) 16.7 SEC (12.0-15.0)
[2016-10-16] MEDS: ERTAPENEM 1 GM in NS 100 ML IV SCH (08:09)
[2016-10-16] MEDS: ENOXAPARIN 40 MG/0.4 ML SYR SC SCH (10:20)
[2016-10-16] MEDS: BRIMONIDINE 0.15% 5 ML OPHT.BTL RTEYE SCH ×2 (10:23→20:08)
[2016-10-16] MEDS: ARIPiprazole 5 MG TAB PO SCH ×2 (10:23→11:26)
[2016-10-16] MEDS: DULoxetine 60 MG CAP PO SCH ×2 (10:23→11:27)
[2016-10-16] MEDS ORDERED: MECLIZINE HCL 12.5 MG TAB PO PRN (10:52)
[2016-10-16] MEDS: PANTOPRAZOLE SODIUM 40 MG in NS 100 ML IV SCH (11:06)
--- NOTE | 2016-10-16 11:06 | SOAPPROG ---
SOAP Progress Note Assessment/Plan: Assessment: s/p Medrano procedure for perforated sigmoid colon, likely due to diverticulitis Plan: NPO until ileus resolves increase lovenox to therapeutic dosing for patent foramen ovale 10/16/16 11:03 Subjective: pain controlled no colostomy output Objective: Vital Signs Temp Pulse Resp BP Pulse Ox 37.5 C 101 H 12 131/62 H 92 10/16/16 07:53 10/16/16 07:53 10/16/16 07:53 10/16/16 07:53 10/16/16 07:53 Microbiology 10/14/16 05:00 Gram Stain - Final Peritoneal Fluid - Aspirate 10/14/16 05:00 Gram Stain - Final Peritoneal Fluid - Aspirate Laboratory Results 10/16/16 04:45 10/16/16 04:45 10/15/16 10/16/16 10/17/16 05:59 05:59 05:59 Intake Total 3848 1493 Output Total 910 705 Balance 2938 788 PT 16.7 SEC (12.0-15.0) H 10/16/16 06:27 INR 1.35 (0.83-1.16) H 10/16/16 06:27 Physical Exam - Physical Exam General Appearance: alert Respiratory: lungs clear Cardiac/Chest: tachycardia (hypoactive bowel sounds, incision without erythema, ostomy viable but without output yet) ICD10 Worksheet Patient Problems: Problems Problem Status Diagnosed Abdominal pain Acute Aphasia Acute C. difficile diarrhea Acute 05/28/16 Dizziness Acute Intra-abdominal free air of unknown etiology Acute Neck pain Acute Thoracic back pain Acute Colitis Acute Dementia Acute Diarrhea Acute Failure to thrive in adult Acute Fall Acute Falls frequently Acute HTN (hypertension), malignant Acute Headache Acute Vomiting Acute Weakness generalized Acute
[2016-10-16] MEDS: PANTOPRAZOLE SODIUM 40 MG TAB PO SCH (11:26)
[2016-10-16] MEDS: LOSARTAN POTASSIUM 50 MG TAB PO SCH ×2 (11:26→20:09)
[2016-10-16] MEDS: LIDOCAINE 5% 1 EA PATCH TD SCH (12:02)
--- NOTE | 2016-10-16 12:20 | PDINTPN ---
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 Doing well. Pain under adequate control. Peritonitis secondary to 1. On ertapenem Acute blood-loss anemia: Hematocrit 29, stable. No evidence of active bleeding. Will follow. History of anticoagulation with Coumadin. On prophylactic Lovenox now, to start full dose today. Coumadin to be restarted once she is taking p.o. does. Nutrition: Still NPO with little in the way of GI function. Surgery would prefer to wait regarding nutrition for return of bowel function. Metabolic: On replacement protocols. GI prophylaxis: Pantoprazole. History of systemic hypertension, hyperlipidemia, dementia, etc. Blood pressure is fine off of medications currently. Plan: Continue present care in the intensive care unit as a step-down patient. Continue pain control. Possibly transfer to medical-surgical status tomorrow. Await return of bowel function. Hold on TPN for now. Follow laboratory and clinical status. Continue Invanz. 25 minutes of clinic time spent directly with the patient. Discussed with nursing, pharmacy and the ICU multi disciplinary team. Subjective: Complains of abdominal pain at times. Denies shortness of breath. Objective: Vital Signs Temp Pulse Resp BP Pulse Ox 37.4 C 93 13 142/68 H 90 L 10/16/16 11:27 10/16/16 11:27 10/16/16 11:27 10/16/16 11:27 10/16/16 11:27 Microbiology 10/14/16 05:00 Gram Stain - Final Peritoneal Fluid - Aspirate 10/14/16 05:00 Gram Stain - Final Peritoneal Fluid - Aspirate Laboratory Results 10/16/16 04:45 10/16/16 04:45 10/15/16 10/16/16 10/17/16 05:59 05:59 05:59 Intake Total 3848 1493 Output Total 910 705 Balance 2938 788 PT 16.7 SEC (12.0-15.0) H 10/16/16 06:27 INR 1.35 (0.83-1.16) H 10/16/16 06:27 Physical Exam - Physical Exam General Appearance: no apparent distress, other (Arousable) EENT: other (Nasal cannula at 3 L. Pulled NG tube out overnight.) Neck: normal inspection Respiratory: lungs clear (Anteriorly), decreased breath sounds, No rales, No rhonchi Cardiac/Chest: regular rate, rhythm (100s. Sinus) Abdomen: No normal bowel sounds (Tender, quiet. No stool in colostomy bag yet.) , No non-tender, No soft Pelvic Exam: other Skin: warm/dry, pallor Lymphatic: no adenopathy Extremities: pedal edema (Trace) Neuro/Psych: no motor/sensory deficits, cognition abnormalities (Probably at baseline secondary to dementia), No oriented x 3 ICD10 Worksheet Patient Problems: Problems Problem Status Diagnosed Abdominal pain Acute Aphasia Acute C. difficile diarrhea Acute 05/28/16 Dizziness Acute Intra-abdominal free air of unknown etiology Acute Neck pain Acute Thoracic back pain Acute Colitis Acute Dementia Acute Diarrhea Acute Failure to thrive in adult Acute Fall Acute Falls frequently Acute HTN (hypertension), malignant Acute Headache Acute Vomiting Acute Weakness generalized Acute
[2016-10-16] MEDS: ENOXAPARIN 60 MG/0.6 ML SYR SC SCH (20:07)
[2016-10-16] MEDS ORDERED: NON-FORMULARY NEW DRUG (Losartan Potassium [Cozaar] 100 MG) PO SCH (21:00)
[2016-10-17] MEDS: HYDROmorphONE/DILAUDID 1 MG/ML SYR IVP PRN ×6 (01:15→20:29)
--- NOTE | 2016-10-17 03:23 | GCON ---
[f rep st] CONSULTATION INPATIENT INFECTIOUS DISEASE CONSULTATION. REFERRING PHYSICIAN: Julieth Cuenca MD REASON FOR REFERRAL: Peritonitis, status post diverticular rupture. HISTORY OF PRESENT ILLNESS: Patient is an 80-year-old female who [facility] on 10/14/2016. The patient had been living at the [facility] assisted living when she had increasingly severe abdominal pain and vomiting. Reportedly, the patient had been somewhat constipated and distended over the last couple of weeks. She was found upon presentation in the emergency room to have leukocytosis and elevated lactate level. CT scan re vealed free air consistent with perforation. She went to the operating room on the morning of 2016. She was found to have a perforated sigmoid colon. Diverting colostomy was performed with over -sewing of the rectal stump. Patient has been on ertapenem monotherapy since. Currently, she is res ting comfortably in her hospital bed. She states "everything is tightening up." Otherwise, no speci fic complaint. PAST MEDICAL HISTORY: 1. Patent foramen ovale. 2. Gastroesophageal reflux disease. 3. Dementia. 4. Hyperlipidemia. 5. Hypertension. 6. History of cerebral vascular accident. 7. Hypothyroidism. 8. History of urinary tract infections. 9. History of Clostridium difficile colitis. 10. Back pain. PAST SURGICAL HISTORY: Status post thyroidectomy. ANTIBIOTICS: Ertapenem. ALLERGIES: Patient is allergic to penicillin. SOCIAL HISTORY: Patient lives in assisted living. She has a supportive daughter. No significant to bacco alcohol or drug use noted. FAMILY HISTORY: Reviewed but noncontributory. REVIEW OF SYSTEMS: Other than detailed above in History of Present Illness, a comprehensive 10-syste m review is negative. PHYSICAL EXAMINATION: VITAL SIGNS: Temperature maximum is 37.5, temperature current is 36.6. Heart rate is 90. Respiratory rate is 12. Blood pressure is 157/77. GENERAL: The patient is a well-for med, alert, elderly female, in no acute distress. She is not toxic in appearance. She is alert and oriented x2. She is pleasant in demeanor. HEENT: Normocephalic for age. Atraumatic. No scleral i cterus. No oral lesion or drainage from the nares. Eyes: Conjunctivae within normal limits. Pupil s are equal and round bilaterally. NECK: Supple without meningismus. LUNGS: Clear to auscultation bilaterally. Good effort. HEART: Regular rate and rhythm. No murmur, rub, or gallop noted. No s ignificant peripheral edema. ABDOMEN: Soft, tender. New colostomy placement left of midline. No m asses noted. SKIN: Warm and dry to the touch. No rash or lesion noted. MUSCULOSKELETAL: No muscl e belly tenderness is noted. No joint line effusion or arthritis is seen. NEURO: Cranial nerves 2 through 12 seem intact. Peripheral sensation seems intact in extremities. LABORATORY DATA: The patient has a CBC dated 10/16/2016, shows a white blood cell count of 11.3, hem oglobin 9.4, hematocrit of 29.7, and a platelet count of 258. Differential is left shifted with 91% segmented neutrophils. Serum chemistries on 10/16/2016, show sodium of 144, potassium 4.6, chloride of 112, bicarbonate of 24, BUN of 17, creatinine 0.6. Urinalysis on 10/14/2016, is within normal katz its. MICROBIOLOGIC DATA: The patient has operative peritoneal fluid cultures dated 10/14/2016, which are growing Klebsiella pneumoniae, as well as Clostridium perfringens. The sensitivity panel on Klebsiel la is pansensitive apart from ampicillin. RADIOLOGIC DATA: Patient has a CT scan of the abdomen dated 10/14/2016, which shows free intraperito yen air as well as a stable left adrenal mass. ASSESSMENT: Peritonitis and sepsis secondary to a ruptured sigmoid colon from severe diverticular di sease and acute diverticulitis. Covered right now with ertapenem. Would add fluconazole 100 mg IV d aily to cover potential fungal contamination, although no yeast or fungi are seen thus far on Gram st ain or culture. At this point, given the isolation of klebsiella and clostridia, I do not think ther e is any need to expand the bacterial portion of coverage empirically. We will follow along clinical ly. Given the extent of fecal contamination, however, in the pelvis, it would not be surprising for her to develop inflammatory collections in the abdomen and pelvis down the line. PLAN: 1. Continue ertapenem monotherapy 1 g daily. 2. Add fluconazole 100 mg IV q.24 hours. 3. Follow culture data and clinical course. /[id number]/MODL
[2016-10-17 04:25] LABS: % IMMATURE GRANULYOCYTES 0.5 % (0.0-1.1); ABSOLUTE IMMATURE GRANULOCYTES 0.05 10^3/uL (0.00-0.10); ADD DIFF? NO; ADD MORPH? NO; ADD SCAN? NO; ATYPICAL LYMPHOCYTE FLAG 10 (0-99); FRAGMENT RBC FLAG 0 (0-99); HEMATOCRIT 31.4 % (38.0-47.0); HEMOGLOBIN 9.9 g/dL (12.6-16.3); LEFT SHIFT FLG 0 (0-99); LIPEMIA HEMOLYSIS FLAG 80 (0-99); MEAN CELL HEMOGLOBIN 31.7 pg (27.9-34.1); MEAN CELL HEMOGLOBIN CONCENTR. 31.5 g/dL (32.4-36.7); MEAN CELL VOLUME 100.6 fL (81.5-99.8); MEAN PLATELET VOLUME 9.7 fL (8.7-11.7); PLATELET CLUMPS FLAG 10 (0-99); PLATELET COUNT 278 10^3/uL (150-400); RED BLOOD CELL COUNT 3.12 10^6/uL (4.18-5.33); RED CELL DISTRIBUTION WIDTH 13.6 % (11.5-15.2)
[2016-10-17 04:58] LABS: INR 1.71 (0.83-1.16); PROTIME(PATIENT) 20.1 SEC (12.0-15.0)
[2016-10-17 05:06] LABS: ANION GAP 9 mEq/L (8-16); CALCIUM 8.1 mg/dL (8.5-10.4); CARBON DIOXIDE 22 mEq/l (22-31); CHLORIDE 113 mEq/L (97-110); CREATININE 0.5 mg/dL (0.6-1.0); GLOMERULAR FILTRATION RATE > 60; GLUCOSE 58 mg/dL (70-100); MAGNESIUM 1.9 mg/dL (1.6-2.3); POTASSIUM 4.1 mEq/L (3.5-5.2); SODIUM 144 mEq/L (134-144)
[2016-10-17] MEDS ORDERED: D50W 25 GM/50 ML SYR IVP ONE ×2 (05:25→05:30)
[2016-10-17] MEDS: LOSARTAN POTASSIUM 50 MG TAB PO SCH ×2 (08:44→20:16)
[2016-10-17] MEDS: HYDROCHLOROTHIAZIDE 25 MG TAB PO SCH (08:44)
[2016-10-17] MEDS: DULoxetine 60 MG CAP PO SCH (08:44)
[2016-10-17] MEDS: ARIPiprazole 5 MG TAB PO SCH (08:44)
[2016-10-17] MEDS: LIDOCAINE 5% 1 EA PATCH TD SCH (08:45)
[2016-10-17] MEDS: PANTOPRAZOLE SODIUM 40 MG TAB PO SCH (08:45)
[2016-10-17] MEDS: ERTAPENEM 1 GM in NS 100 ML IV SCH (08:51)
[2016-10-17] MEDS: NS W/ 20 KCl/L 1,000 ML IV SCH (08:51)
[2016-10-17] MEDS: BRIMONIDINE 0.15% 5 ML OPHT.BTL RTEYE SCH ×2 (08:52→20:16)
[2016-10-17] MEDS: ENOXAPARIN 60 MG/0.6 ML SYR SC SCH ×2 (08:53→20:16)
[2016-10-17] MEDS ORDERED: PANTOPRAZOLE SODIUM 40 MG TAB PO SCH (09:00)
--- NOTE | 2016-10-17 09:34 | PDINTPN ---
[employer] Att[employer] Progress Note Assessment/Plan: Assessment: Status post perforated bowel, resection, colostomy. Doing well. Pain under adequate control. Starting to have return of bowel function. Peritonitis secondary to 1. On ertapenem, antifungal started yesterday. Acute blood-loss anemia: Hematocrit 31, stable. No evidence of active bleeding. Will follow. History of anticoagulation with Coumadin. On full-dose Lovenox. Coumadin to be restarted once she is taking p.o. does. Nutrition: Still NPO, bowel sounds present today Surgery waiting regarding nutrition for return of bowel function. Metabolic: On replacement protocols. GI prophylaxis: Pantoprazole. History of systemic hypertension, hyperlipidemia, dementia, etc. Blood pressure is fine off of medications currently. Plan: Continue present care in the intensive care unit as a step-down patient. Continue pain control. Possibly transfer to medical-surgical status today. Possibly start clears today. Per surgery. Follow laboratory and clinical status. Continue Invanz, fluconazole. 25 minutes of clinic time spent directly with the patient. Discussed with nursing and the ICU multi disciplinary team. Subjective: Not so hot. Does not recall needing surgery. Has some abdominal discomfort, hip discomfort. Objective: Vital Signs Temp Pulse Resp BP Pulse Ox 36.1 C 99 18 155/83 H 94 10/17/16 07:34 10/17/16 07:34 10/17/16 07:34 10/17/16 07:34 10/17/16 07:34 Microbiology 10/14/16 05:00 Gram Stain - Final Peritoneal Fluid - Aspirate 10/14/16 05:00 Gram Stain - Final Peritoneal Fluid - Aspirate Laboratory Results 10/17/16 04:15 10/17/16 04:15 10/16/16 10/17/16 10/18/16 05:59 05:59 05:59 Intake Total 1493 1859 Output Total 705 750 Balance 788 1109 PT 20.1 SEC (12.0-15.0) H 10/17/16 04:15 INR 1.71 (0.83-1.16) H 10/17/16 04:15 Laboratory Tests 10/17/16 04:15 INR 1.71 H Calcium 8.1 L Magnesium 1.9 Physical Exam - Physical Exam General Appearance: alert, no apparent distress EENT: PERRL/EOMI, other (Nasal cannula 2 L) Neck: normal inspection (No JVD) Respiratory: lungs clear (Anteriorly), decreased breath sounds (At bases) Cardiac/Chest: regular rate, rhythm, gallop (Soft gallop present?), tachycardia (Low 100s at times, sinus) Abdomen: normal bowel sounds, No non-tender, No soft (Mildly distended, somewhat tender to palpation. Good bowel sounds now. No stool in colostomy.) Pelvic Exam: other (Flores catheter in place.) Skin: warm/dry, pallor Extremities: pedal edema Neuro/Psych: no motor/sensory deficits, cognition abnormalities (Dementia) ICD10 Worksheet Patient Problems: Problems Problem Status Diagnosed Abdominal pain Acute Aphasia Acute C. difficile diarrhea Acute 05/28/16 Dizziness Acute Intra-abdominal free air of unknown etiology Acute Neck pain Acute Thoracic back pain Acute Colitis Acute Dementia Acute Diarrhea Acute Failure to thrive in adult Acute Fall Acute Falls frequently Acute HTN (hypertension), malignant Acute Headache Acute Vomiting Acute Weakness generalized Acute
[2016-10-17] MEDS: FLUCONAZOLE/NaCl 100 MG in BAG 0 ML IV SCH (10:01)
--- NOTE | 2016-10-17 10:23 | PCMIDPN ---
Assessment/Plan: Assessment: Peritonitis status post ruptured sigmoid colon. Currently covered with ertapenem and fluconazole. Patient appears stable. She complains of abdominal pain with deep breathing. Will continue with current antibiotic regimen and pain control. Plan: 1. Continue both ertapenem and fluconazole. 2. Follow maturing culture data and patient's clinical course. Subjective: Patient is sitting up in her chair. She is watching television. She appears calm and in no obvious pain. When asked about pain she complains that she hurts all over. She admits to abdominal pain with deep breathing. No fevers or chills. Objective: Ertapenem # 3 Fluconazole # 2 Vital Signs Temp Pulse Resp BP Pulse Ox 36.1 C 99 18 155/83 H 94 10/17/16 07:34 10/17/16 07:34 10/17/16 07:34 10/17/16 07:34 10/17/16 07:34 Microbiology 10/14/16 05:00 Gram Stain - Final Peritoneal Fluid - Aspirate 10/14/16 05:00 Gram Stain - Final Peritoneal Fluid - Aspirate Laboratory Results 10/17/16 04:15 10/17/16 04:15 10/16/16 10/17/16 10/18/16 05:59 05:59 05:59 Intake Total 1493 1859 Output Total 705 750 Balance 788 1109 - Physical Exam General Appearance: WD/WN, alert, no apparent distress, non-toxic Respiratory: lungs clear, normal breath sounds, No respiratory distress Cardiac/Chest: regular rate, rhythm, tachycardia (Borderline) Extremities: non-tender, normal inspection Abdomen: soft, No non-tender, No mass Skin: normal color, warm/dry, No rash Neuro/Psych: alert, normal mood/affect, oriented x 3 ICD10 Worksheet Patient Problems: Problems Problem Status Diagnosed Abdominal pain Acute Aphasia Acute C. difficile diarrhea Acute 05/28/16 Dizziness Acute Intra-abdominal free air of unknown etiology Acute Neck pain Acute Thoracic back pain Acute Colitis Acute Dementia Acute Diarrhea Acute Failure to thrive in adult Acute Fall Acute Falls frequently Acute HTN (hypertension), malignant Acute Headache Acute Vomiting Acute Weakness generalized Acute
--- NOTE | 2016-10-17 10:51 | SOAPPROG ---
SOAP Progress Note Assessment/Plan: Assessment: s/p Medrano procedure for perforated sigmoid colon, likely due to diverticulitis Plan: sips of clears ok appreciate ID input, continue antibiotic/antifungal will try gentle diuresis to decrease anasarca/bowel wall edema increase lovenox to therapeutic dosing for patent foramen ovale 10/17/16 10:49 Subjective: thirsty no stool/gas in colostomy bag Objective: Vital Signs Temp Pulse Resp BP Pulse Ox 36.1 C 99 18 155/83 H 94 10/17/16 07:34 10/17/16 07:34 10/17/16 07:34 10/17/16 07:34 10/17/16 07:34 Microbiology 10/14/16 05:00 Gram Stain - Final Peritoneal Fluid - Aspirate 10/14/16 05:00 Gram Stain - Final Peritoneal Fluid - Aspirate Laboratory Results 10/17/16 04:15 10/17/16 04:15 10/16/16 10/17/16 10/18/16 05:59 05:59 05:59 Intake Total 1493 1859 Output Total 705 750 Balance 788 1109 PT 20.1 SEC (12.0-15.0) H 10/17/16 04:15 INR 1.71 (0.83-1.16) H 10/17/16 04:15 Physical Exam - Physical Exam General Appearance: alert Respiratory: lungs clear Cardiac/Chest: regular rate, rhythm Abdomen: normal bowel sounds, soft, distended, other (colostomy viable, without gas/stool yet, incision without erythema) ICD10 Worksheet Patient Problems: Problems Problem Status Diagnosed Abdominal pain Acute Aphasia Acute C. difficile diarrhea Acute 05/28/16 Dizziness Acute Intra-abdominal free air of unknown etiology Acute Neck pain Acute Thoracic back pain Acute Colitis Acute Dementia Acute Diarrhea Acute Failure to thrive in adult Acute Fall Acute Falls frequently Acute HTN (hypertension), malignant Acute Headache Acute Vomiting Acute Weakness generalized Acute
[2016-10-17] MEDS ORDERED: FUROSEMIDE 20 MG/2 ML VIAL IVP ONE (10:52)
[2016-10-17] MEDS ORDERED: D5W 1/2 NS W/ 40 KCl/L 1,000 ML IV SCH (11:00)
[2016-10-17 19:31] LABS: POTASSIUM 3.3 mEq/L (3.5-5.2)
[2016-10-17] MEDS ORDERED: POTASSIUM CL 10 MEQ TAB PO ONE (19:58)
[2016-10-17] MEDS: ONDANSETRON 4 MG/2 ML VIAL IVP PRN (23:37)
[2016-10-17] MEDS: D5W 1/2 NS W/ 20 KCl/L 1,000 ML IV SCH (23:37)
[2016-10-18] MEDS: HYDROmorphONE/DILAUDID 1 MG/ML SYR IVP PRN ×7 (00:16→20:34)
[2016-10-18] MEDS: PATCH REMOVAL 1 EA PATCH TD SCH ×2 (00:27→20:44)
[2016-10-18 05:00] LABS: % IMMATURE GRANULYOCYTES 0.6 % (0.0-1.1); ABSOLUTE IMMATURE GRANULOCYTES 0.04 10^3/uL (0.00-0.10); ADD DIFF? NO; ADD MORPH? NO; ADD SCAN? NO; ATYPICAL LYMPHOCYTE FLAG 10 (0-99); FRAGMENT RBC FLAG 0 (0-99); HEMATOCRIT 29.4 % (38.0-47.0); HEMOGLOBIN 9.8 g/dL (12.6-16.3); LEFT SHIFT FLG 0 (0-99); LIPEMIA HEMOLYSIS FLAG 80 (0-99); MEAN CELL HEMOGLOBIN 31.6 pg (27.9-34.1); MEAN CELL HEMOGLOBIN CONCENTR. 33.3 g/dL (32.4-36.7); MEAN CELL VOLUME 94.8 fL (81.5-99.8); MEAN PLATELET VOLUME 9.5 fL (8.7-11.7); PLATELET CLUMPS FLAG 0 (0-99); PLATELET COUNT 294 10^3/uL (150-400); RED CELL DISTRIBUTION WIDTH 13.3 % (11.5-15.2)
[2016-10-18 05:16] LABS: ANION GAP 7 mEq/L (8-16); CALCIUM 7.8 mg/dL (8.5-10.4); CARBON DIOXIDE 28 mEq/l (22-31); CHLORIDE 105 mEq/L (97-110); CREATININE 0.5 mg/dL (0.6-1.0); GLOMERULAR FILTRATION RATE > 60; GLUCOSE 101 mg/dL (70-100); MAGNESIUM 1.5 mg/dL (1.6-2.3); POTASSIUM 3.4 mEq/L (3.5-5.2); SODIUM 140 mEq/L (134-144)
[2016-10-18 05:17] LABS: INR 1.54 (0.83-1.16); PROTIME(PATIENT) 18.5 SEC (12.0-15.0)
[2016-10-18] MEDS: HYDROCHLOROTHIAZIDE 25 MG TAB PO SCH (08:33)
[2016-10-18] MEDS: LOSARTAN POTASSIUM 50 MG TAB PO SCH ×2 (08:33→20:34)
[2016-10-18] MEDS: PANTOPRAZOLE SODIUM 40 MG TAB PO SCH (08:33)
[2016-10-18] MEDS: ONDANSETRON 4 MG/2 ML VIAL IVP PRN (08:33)
[2016-10-18] MEDS: DULoxetine 60 MG CAP PO SCH (08:33)
[2016-10-18] MEDS: ENOXAPARIN 60 MG/0.6 ML SYR SC SCH ×2 (08:34→20:34)
[2016-10-18] MEDS: LIDOCAINE 5% 1 EA PATCH TD SCH (08:34)
[2016-10-18] MEDS: BRIMONIDINE 0.15% 5 ML OPHT.BTL RTEYE SCH ×2 (08:35→20:44)
[2016-10-18] MEDS ORDERED: POTASSIUM CL 10 MEQ TAB PO ONE ×2 (08:55→19:32)
[2016-10-18] MEDS: ERTAPENEM 1 GM in NS 100 ML IV SCH (09:55)
[2016-10-18] MEDS: FLUCONAZOLE/NaCl 100 MG in BAG 0 ML IV SCH (09:55)
[2016-10-18] MEDS ORDERED: MAGNESIUM SULF 1 GM/DEXTROSE 100 ML IV ONE (09:59)
--- NOTE | 2016-10-18 10:17 | PCMIDPN ---
Assessment/Plan: 1. Peritonitis secondary to ruptured diverticulitis status post sigmoid resection/descending colostomy with Richard procedure: Stable, but sluggish improvement. Would continue both ertapenem and fluconazole as is pending maturation of cultures, particularly fungal culture. Check liver function tests tomorrow on fluconazole. No other new recommendations at this point in time. Subjective: Tells me I do not know what's going on with me. Proceeded to have conversation with her regarding hospital course, and plans moving forward. Fairly flat affect and laconic today with me. Objective: Ertapenem 1 g IV daily day 4 Fluconazole 100 mg daily day 3 T-max 37degrees Vital Signs Temp Pulse Resp BP Pulse Ox 36.4 C 101 H 20 169/107 H 96 10/18/16 08:00 10/18/16 08:00 10/18/16 08:00 10/18/16 08:00 10/18/16 08:00 Microbiology 10/14/16 05:00 Gram Stain - Final Peritoneal Fluid - Aspirate 10/14/16 05:00 Gram Stain - Final Peritoneal Fluid - Aspirate Laboratory Results 10/18/16 04:36 10/18/16 04:36 10/17/16 10/18/16 10/19/16 05:59 05:59 05:59 Intake Total 1859 1679 Output Total 750 3350 Balance 1109 -1671 Peritoneal cultures with Klebsiella pneumoniae and Clostridium perfringens Per micro lab, 1 small colony growing on fungal plate; unclear what this is at this point in time. No blood cultures. Pathology from operative specimen without evidence of malignancy. - Physical Exam General Appearance: other (Laying in bed, looks tired. Flat affect. No apparent distress.) EENT: No scleral icterus, No thrush Respiratory: lungs clear Cardiac/Chest: regular rate, rhythm Abdomen: other (Bowel sounds audible. Colostomy bag with scanty amount of dark thin fluid. No significant tenderness to palpation. Incision looks fine. Harleen in place. No manjinder-incisional drainage or erythema.) Skin: No rash ICD10 Worksheet Patient Problems: Problems Problem Status Diagnosed Abdominal pain Acute Aphasia Acute C. difficile diarrhea Acute 05/28/16 Dizziness Acute Intra-abdominal free air of unknown etiology Acute Neck pain Acute Thoracic back pain Acute Colitis Acute Dementia Acute Diarrhea Acute Failure to thrive in adult Acute Fall Acute Falls frequently Acute HTN (hypertension), malignant Acute Headache Acute Vomiting Acute Weakness generalized Acute
[2016-10-18] MEDS: ARIPiprazole 5 MG TAB PO SCH (10:32)
--- NOTE | 2016-10-18 10:36 | WOCRNPDOC ---
[facility] Advanced Assessment Note - Skin Integrity Problem, Advanced Assess Sacrum Pressure Injury Dressing Type: Allevyn Life (sacral) Dressing Description: Clean/Dry, Intact Exudate Amount: None Exudate Characteristic(s): None Integumentary Issue Intervention: Visualized Under Dressing Manjinder Wound Tissue: Blanching, Intact Manjinder Wound Swelling: None Wound Bed Color: Purple, Red Pressure Injury Stage: Stage 1 Pressure Injury Present on Admit: Yes Skin Integrity Problem Comment: Area of non-blanching erythema noted to R sacrum , a mix of dark purple and red. This site remains a stage I pressure injury, and continues to be intact at this time w/ no partial-thickness tissue loss evident. Color suggests that this could be a deep tissue injury, though it has not evolved since assessment on 10/15. Dry, flaky skin noted manjinder-wound. Continue w/ current tx, patient turned on L side off-loading sacrum/coccyx. Coccyx Pressure Injury Dressing Type: Allevyn Life (sacral dressing) Dressing Description: Clean/Dry, Intact Exudate Amount: None Exudate Characteristic(s): None Integumentary Issue Intervention: Visualized Under Dressing Manjinder Wound Tissue: Blanching, Erythema, Intact Manjinder Wound Swelling: None Wound Bed Color: Red Pressure Injury Stage: Stage 1 Pressure Injury Present on Admit: Yes Skin Integrity Problem Comment: Pinpoint area of non-blanching erythema just over the coccyx, consistent w/ previous staging by wound RN on 10/15. Skin is presently intact. Blanching erythema noted manjinder-wound, w/ mild incontinence- associated dermatitis observed. Continue w/ current tx, off-loading sacrum and coccyx. - Colostomy Assessment, Advanced Colostomy Stoma Colostomy Appliance Intact: Yes Colostomy Appliance Currently in Use: Two Piece Flat, 2 1/ Stoma Color: Red Stoma Turgor: Moist Stoma Shape: Oval Stoma Height: Protruding Slightly Mucocutaneus Junction Comment: unable to visulaize due to barrier appliance Colostomy Effluent: Fecal, Thin Colostomy Comment/Treatment Details: 2-piece colostomy appliance presently intact, w/ thin fecal effluent noted in pouch. No appliance change at this time as existing appliance is CD&I. Stoma appears moist and red, with a low profile. Unable to visualize mucocutaneous junction and manjinder-stomal skin r/t barrier. Spoke w/ patient to ascertain her orientation. She is presently A+O x 2, aware of person and place, but unable to tell me the month/year or her current living situation. She was also somnulent, dozing off a few times during our conversation. Unable to determine if this his her baseline mental status, or r/ t pain medication & recent surgery. At this point, she would not benefit from any ostomy-related teaching. I spoke with case management, and presently the plan is for her to [facility] to a [facility] facility. It is my recommendation that she be reassessed in that setting to determine if she will be able to manage this colostomy going forward.
--- NOTE | 2016-10-18 10:57 | SOAPPROG ---
SOAP Progress Note Assessment/Plan: Assessment: s/p Medrano procedure for perforated sigmoid colon, likely due to diverticulitis Plan: clear liquids diuresis with lasix for anasarca benadryl for itching continue naik for acurate I&Os 10/18/16 10:55 Subjective: pain controlled c/o itching, likely due to dilaudid Objective: Vital Signs Temp Pulse Resp BP Pulse Ox 36.4 C 101 H 20 169/107 H 96 10/18/16 08:00 10/18/16 08:00 10/18/16 08:00 10/18/16 08:00 10/18/16 08:00 Microbiology 10/14/16 05:00 Gram Stain - Final Peritoneal Fluid - Aspirate 10/14/16 05:00 Gram Stain - Final Peritoneal Fluid - Aspirate Laboratory Results 10/18/16 04:36 10/18/16 04:36 10/17/16 10/18/16 10/19/16 05:59 05:59 05:59 Intake Total 1859 1679 Output Total 750 3350 Balance 1109 -1671 PT 18.5 SEC (12.0-15.0) H 10/18/16 04:36 INR 1.54 (0.83-1.16) H 10/18/16 04:36 Physical Exam - Physical Exam General Appearance: alert Respiratory: lungs clear Cardiac/Chest: tachycardia Abdomen: soft, other (incision without erythema, ostomy viable but no producing yet), No distended ICD10 Worksheet Patient Problems: Problems Problem Status Diagnosed Abdominal pain Acute Aphasia Acute C. difficile diarrhea Acute 05/28/16 Dizziness Acute Intra-abdominal free air of unknown etiology Acute Neck pain Acute Thoracic back pain Acute Colitis Acute Dementia Acute Diarrhea Acute Failure to thrive in adult Acute Fall Acute Falls frequently Acute HTN (hypertension), malignant Acute Headache Acute Vomiting Acute Weakness generalized Acute
[2016-10-18] MEDS: D5W 1/2 NS W/ 20 KCl/L 1,000 ML IV SCH (14:25)
[2016-10-18] MEDS ORDERED: FUROSEMIDE 20 MG/2 ML VIAL IVP ONE (17:00)
[2016-10-18 19:14] LABS: POTASSIUM 3.6 mEq/L (3.5-5.2)
[2016-10-19] MEDS: ONDANSETRON 4 MG/2 ML VIAL IVP PRN (04:22)
[2016-10-19] MEDS: HYDROmorphONE/DILAUDID 1 MG/ML SYR IVP PRN ×5 (04:23→19:52)
[2016-10-19 05:23] LABS: ALANINE AMINOTRANSFERASE 27 IU/L (9-52); ALBUMIN 2.3 g/dL (3.5-5.0); ALKALINE PHOSPHATASE 36 IU/L (38-126); ANION GAP 6 mEq/L (8-16); ASPARTATE AMINOTRANSFERASE 11 IU/L (14-46); BILIRUBIN,TOTAL 0.7 mg/dL (0.1-1.4); CARBON DIOXIDE 31 mEq/l (22-31); CHLORIDE 99 mEq/L (97-110); CREATININE 0.4 mg/dL (0.6-1.0); GLOMERULAR FILTRATION RATE > 60; GLUCOSE 116 mg/dL (70-100); MAGNESIUM 1.6 mg/dL (1.6-2.3); POTASSIUM 4.1 mEq/L (3.5-5.2); SODIUM 136 mEq/L (134-144); TOTAL PROTEIN 4.3 g/dL (6.3-8.2)
[2016-10-19] MEDS: LIDOCAINE 5% 1 EA PATCH TD SCH (07:46)
[2016-10-19] MEDS: ENOXAPARIN 60 MG/0.6 ML SYR SC SCH ×2 (07:46→20:01)
[2016-10-19] MEDS: ERTAPENEM 1 GM in NS 100 ML IV SCH (07:46)
[2016-10-19] MEDS: ARIPiprazole 5 MG TAB PO SCH (07:47)
[2016-10-19] MEDS: DULoxetine 60 MG CAP PO SCH (07:47)
[2016-10-19] MEDS: HYDROCHLOROTHIAZIDE 25 MG TAB PO SCH (07:47)
[2016-10-19] MEDS: LOSARTAN POTASSIUM 50 MG TAB PO SCH ×2 (07:47→19:59)
[2016-10-19] MEDS: FLUCONAZOLE/NaCl 100 MG in BAG 0 ML IV SCH (07:47)
[2016-10-19] MEDS: BRIMONIDINE 0.15% 5 ML OPHT.BTL RTEYE SCH ×2 (07:48→20:09)
[2016-10-19] MEDS: PANTOPRAZOLE SODIUM 40 MG TAB PO SCH (07:48)
[2016-10-19] MEDS ORDERED: MAGNESIUM SULF 1 GM/DEXTROSE 100 ML IV ONE (07:58)
[2016-10-19] MEDS ORDERED: MAGNESIUM SULF 1 GM/DEXTROSE 100 ML BAG IV ONE (08:00)
[2016-10-19] MEDS ORDERED: FUROSEMIDE 20 MG/2 ML VIAL IVP ONE (10:48)
--- NOTE | 2016-10-19 10:48 | SOAPPROG ---
SOAP Progress Note Assessment/Plan: Assessment: s/p Medrano procedure for perforated sigmoid colon, likely due to diverticulitis Plan: diet of choice continue diuresis encourage mobilization with PT/OT 10/19/16 10:47 Subjective: taking only sips of clears not mobilizing much over 3 L out with lasix Objective: Vital Signs Temp Pulse Resp BP Pulse Ox 36.9 C 97 14 132/83 H 94 10/19/16 07:36 10/19/16 07:36 10/19/16 07:36 10/19/16 07:36 10/19/16 07:36 Microbiology 10/14/16 05:00 Gram Stain - Final Peritoneal Fluid - Aspirate 10/14/16 05:00 Gram Stain - Final Peritoneal Fluid - Aspirate Laboratory Results 10/18/16 04:36 10/19/16 04:30 10/18/16 10/19/16 10/20/16 05:59 05:59 05:59 Intake Total 1679 0 Output Total 3350 2650 Balance -1671 -2650 PT 18.5 SEC (12.0-15.0) H 10/18/16 04:36 INR 1.54 (0.83-1.16) H 10/18/16 04:36 Physical Exam - Physical Exam General Appearance: alert Respiratory: lungs clear Cardiac/Chest: regular rate, rhythm Abdomen: soft, other (still no ostomy output, incision without erythema) ICD10 Worksheet Patient Problems: Problems Problem Status Diagnosed Abdominal pain Acute Aphasia Acute C. difficile diarrhea Acute 05/28/16 Dizziness Acute Intra-abdominal free air of unknown etiology Acute Neck pain Acute Thoracic back pain Acute Colitis Acute Dementia Acute Diarrhea Acute Failure to thrive in adult Acute Fall Acute Falls frequently Acute HTN (hypertension), malignant Acute Headache Acute Vomiting Acute Weakness generalized Acute
--- NOTE | 2016-10-19 13:25 | PCMIDPN ---
Assessment/Plan: Assessment/Plan: 1. Polymicrobial Peritonitis secondary to perforated diverticulitis-s/p sigmoid resection, colostomy - s/p surgery on 10/14/16 -cx noted, expect to be polymicrobial process. -Currently on invanz and fluconazole for above. -Labs overall improved. Creatinine and LFT's stable. -Continue with current therapy for now. Meds invanz 1g daily- 10/14/16 fluconazole 100mg daily- 10/17/16 Subjective: Afebrile. appears tired, weak. c/o abd pain. Denies sob. shallow breaths overall. Objective: Vital Signs Temp Pulse Resp BP Pulse Ox 36.3 C 92 16 124/86 H 95 10/19/16 12:33 10/19/16 12:33 10/19/16 12:33 10/19/16 12:33 10/19/16 12:33 Microbiology 10/14/16 05:00 Gram Stain - Final Peritoneal Fluid - Aspirate 10/14/16 05:00 Gram Stain - Final Peritoneal Fluid - Aspirate Laboratory Results 10/18/16 04:36 10/19/16 04:30 10/18/16 10/19/16 10/20/16 05:59 05:59 05:59 Intake Total 1679 0 Output Total 1984 1064 004 Balance -6450 -6148 -146 - Physical Exam General Appearance: alert, no apparent distress, other (appears tired) Respiratory: lungs clear (poor inspiratory however) Cardiac/Chest: regular rate, rhythm Abdomen: other (colostomy noted. abd mildly distended.) Skin: No erythema ICD10 Worksheet Patient Problems: Problems Problem Status Diagnosed Abdominal pain Acute Aphasia Acute C. difficile diarrhea Acute 05/28/16 Dizziness Acute Intra-abdominal free air of unknown etiology Acute Neck pain Acute Thoracic back pain Acute Colitis Acute Dementia Acute Diarrhea Acute Failure to thrive in adult Acute Fall Acute Falls frequently Acute HTN (hypertension), malignant Acute Headache Acute Vomiting Acute Weakness generalized Acute
[2016-10-19] MEDS: D5W 1/2 NS W/ 20 KCl/L 1,000 ML IV SCH (18:48)
[2016-10-19] MEDS: PATCH REMOVAL 1 EA PATCH TD SCH (20:10)
[2016-10-19 20:36] LABS: POTASSIUM 3.8 mEq/L (3.5-5.2)
[2016-10-19] MEDS ORDERED: POTASSIUM CL 10 MEQ TAB PO ONE (20:50)
[2016-10-20] MEDS: HYDROmorphONE/DILAUDID 1 MG/ML SYR IVP PRN ×2 (04:23→21:08)
[2016-10-20 04:58] LABS: MAGNESIUM 1.8 mg/dL (1.6-2.3); POTASSIUM 4.1 mEq/L (3.5-5.2)
[2016-10-20] MEDS ORDERED: MAGNESIUM SULF 1 GM/DEXTROSE 100 ML IV ONE (07:46)
[2016-10-20] MEDS: D5W 1/2 NS W/ 20 KCl/L 1,000 ML IV SCH (07:56)
[2016-10-20] MEDS: ENOXAPARIN 60 MG/0.6 ML SYR SC SCH ×2 (07:59→21:08)
[2016-10-20] MEDS: FLUCONAZOLE/NaCl 100 MG in BAG 0 ML IV SCH (09:13)
[2016-10-20] MEDS: ARIPiprazole 5 MG TAB PO SCH (09:20)
[2016-10-20] MEDS: LIDOCAINE 5% 1 EA PATCH TD SCH (09:20)
[2016-10-20] MEDS: DULoxetine 60 MG CAP PO SCH (09:20)
[2016-10-20] MEDS: LOSARTAN POTASSIUM 50 MG TAB PO SCH ×2 (09:21→21:09)
[2016-10-20] MEDS: PANTOPRAZOLE SODIUM 40 MG TAB PO SCH (09:21)
[2016-10-20] MEDS: HYDROCHLOROTHIAZIDE 25 MG TAB PO SCH (09:21)
[2016-10-20] MEDS: BRIMONIDINE 0.15% 5 ML OPHT.BTL RTEYE SCH ×2 (09:22→22:00)
[2016-10-20] MEDS: ERTAPENEM 1 GM in NS 100 ML IV SCH (10:16)
--- NOTE | 2016-10-20 10:21 | SOAPPROG ---
SOAP Progress Note Assessment/Plan: Assessment: s/p Medrano procedure for perforated sigmoid colon, likely due to diverticulitis failure to thrive/poor appetite and weakness Plan: diet of choice will check CBC (last WBC 2 days ago normal) 10/20/16 10:19 Subjective: nauseated Objective: Vital Signs Temp Pulse Resp BP Pulse Ox 36.6 C 96 16 131/78 H 94 10/20/16 07:36 10/20/16 07:36 10/20/16 07:36 10/20/16 07:36 10/20/16 07:36 Laboratory Results 10/18/16 04:36 10/20/16 04:30 10/19/16 10/20/16 10/21/16 05:59 05:59 05:59 Intake Total 0 250 Output Total 2650 3000 Balance -2650 -2750 PT 18.5 SEC (12.0-15.0) H 10/18/16 04:36 INR 1.54 (0.83-1.16) H 10/18/16 04:36 Physical Exam - Physical Exam General Appearance: alert Respiratory: lungs clear Cardiac/Chest: regular rate, rhythm Abdomen: normal bowel sounds, other (no colostomy output) ICD10 Worksheet Patient Problems: Problems Problem Status Diagnosed Abdominal pain Acute Aphasia Acute C. difficile diarrhea Acute 05/28/16 Dizziness Acute Intra-abdominal free air of unknown etiology Acute Neck pain Acute Thoracic back pain Acute Colitis Acute Dementia Acute Diarrhea Acute Failure to thrive in adult Acute Fall Acute Falls frequently Acute HTN (hypertension), malignant Acute Headache Acute Vomiting Acute Weakness generalized Acute
[2016-10-20] MEDS: ONDANSETRON 4 MG/2 ML VIAL IVP PRN (10:22)
[2016-10-20 10:44] LABS: % IMMATURE GRANULYOCYTES 0.9 % (0.0-1.1); ABSOLUTE IMMATURE GRANULOCYTES 0.06 10^3/uL (0.00-0.10); ADD DIFF? NO; ADD MORPH? NO; ADD SCAN? NO; ATYPICAL LYMPHOCYTE FLAG 20 (0-99); FRAGMENT RBC FLAG 0 (0-99); HEMATOCRIT 27.2 % (38.0-47.0); HEMOGLOBIN 9.1 g/dL (12.6-16.3); LEFT SHIFT FLG 0 (0-99); LIPEMIA HEMOLYSIS FLAG 80 (0-99); MEAN CELL HEMOGLOBIN 32.2 pg (27.9-34.1); MEAN CELL HEMOGLOBIN CONCENTR. 33.5 g/dL (32.4-36.7); MEAN CELL VOLUME 96.1 fL (81.5-99.8); MEAN PLATELET VOLUME 9.2 fL (8.7-11.7); PLATELET CLUMPS FLAG 10 (0-99); PLATELET COUNT 349 10^3/uL (150-400); RED BLOOD CELL COUNT 2.83 10^6/uL (4.18-5.33); RED CELL DISTRIBUTION WIDTH 13.2 % (11.5-15.2)
[2016-10-20] MEDS ORDERED: IOPAMIDOL (ISOVUE-300) 100 ML BTL IV ONE (10:48)
--- NOTE | 2016-10-20 13:42 | CT ---
CT Scan of the Abdomen and Pelvis (With Contrast) Clinical Indications: Persistent ileus after Medrano's procedure for perforated colon; check for abs cess. Technique: 80 mL of Isovue 300 were given intravenously by machine power injection. Multidetector helical CT imaging was performed from the diaphragm to the symphysis pubis. Dose reduction technique s were utilized. Comparison Examination: October 14, 2016. Findings CT abdomen: From previous examination, there has been placement of an ostomy in the left lower quadra nt. There is retention of fecal material and contrast within the colon proximal to the ostomy, sugges ting the ostomy may be narrowed or there may be mucosal edema somewhat limiting passage of fecal mate rial. The degree of colonic distention, however, has improved from the presurgical examination of Oct. Progressive small bowel distention is noted from presurgical examination with moderate fluid-filled distention of stomach and small bowel throughout. Bilateral pleural effusions, small in size with bilateral lower lobe atelectasis appear new from prev ious exam. A cyst is present in the posterior segment of the right hepatic lobe. No dominant hepatic mass. Mild pericardial effusion. Spleen is normal in size. Pancreas enhances normally. There is a mod erate size hiatal hernia. Pelvic cysts are present within the central left kidney. No features of obs tructive uropathy. CT pelvis: Moderate peritoneal free fluid. A Flores catheter is present in the urinary bladder. Impression: 1. Interval placement of an ostomy left lower quadrant. Retention of contrast-enhanced fecal material proximal to the ostomy suggests there may be swelling or narrowing of the ostomy somewhat limiting p assage of stool, although the colon appears less distended than on presurgical exam. 2. Moderate fluid-filled distention of small bowel throughout. There is also a moderate amount of flu id in the stomach, new. 3. Bilateral pleural effusions with bilateral lower lobe atelectasis, new. 4. Pericardial effusion. 5. Hiatal hernia. 6. Moderate peritoneal ascites within the pelvis.
[2016-10-20] MEDS: ALTEPLASE 2 MG VIAL IVP PRN (21:10)
[2016-10-20 21:37] LABS: POTASSIUM 4.3 mEq/L (3.5-5.2)
[2016-10-20] MEDS: PATCH REMOVAL 1 EA PATCH TD SCH (22:01)
[2016-10-21] MEDS: ONDANSETRON 4 MG/2 ML VIAL IVP PRN (04:14)
[2016-10-21] MEDS: HYDROmorphONE/DILAUDID 1 MG/ML SYR IVP PRN ×3 (04:25→19:38)
[2016-10-21 05:50] LABS: MAGNESIUM 1.8 mg/dL (1.6-2.3); POTASSIUM 4.3 mEq/L (3.5-5.2)
[2016-10-21] MEDS ORDERED: MAGNESIUM SULF 1 GM/DEXTROSE 100 ML IV ONE (09:02)
[2016-10-21] MEDS: ARIPiprazole 5 MG TAB PO SCH (09:06)
[2016-10-21] MEDS: ERTAPENEM 1 GM in NS 100 ML IV SCH (09:06)
[2016-10-21] MEDS: LOSARTAN POTASSIUM 50 MG TAB PO SCH ×3 (09:07→23:07)
[2016-10-21] MEDS: DULoxetine 60 MG CAP PO SCH (09:07)
[2016-10-21] MEDS: PANTOPRAZOLE SODIUM 40 MG TAB PO SCH (09:07)
[2016-10-21] MEDS: ENOXAPARIN 60 MG/0.6 ML SYR SC SCH ×2 (09:08→19:39)
[2016-10-21] MEDS: HYDROCHLOROTHIAZIDE 25 MG TAB PO SCH (09:08)
[2016-10-21] MEDS: BRIMONIDINE 0.15% 5 ML OPHT.BTL RTEYE SCH ×2 (09:09→19:46)
[2016-10-21] MEDS: LIDOCAINE 5% 1 EA PATCH TD SCH (09:15)
[2016-10-21] MEDS: FLUCONAZOLE/NaCl 100 MG in BAG 0 ML IV SCH (10:08)
--- NOTE | 2016-10-21 10:23 | PCMIDPN ---
Assessment/Plan: Assessment: Peritonitis status post ruptured sigmoid colon. Currently covered with ertapenem and fluconazole. Clinically the patient does not appear to be improving quickly however her CT scan does not show any evidence for new rupture or abscess formation. Plan to continue both the ertapenem in the Diflucan and follow her clinical course forward. Plan: 1. Continue both ertapenem and fluconazole. 2. Follow maturing culture data and patient's clinical course. Subjective: Patient is resting comfortably in her hospital bed. She still says that she hurts all over. No other specific complaints. She remains afebrile. Objective: Ertapenem # 7. Fluconazole # 6 Vital Signs Temp Pulse Resp BP Pulse Ox 36.7 C 93 20 130/83 H 96 10/20/16 23:13 10/21/16 08:00 10/21/16 08:00 10/21/16 09:08 10/21/16 08:00 Laboratory Results 10/20/16 10:30 10/21/16 05:05 10/20/16 10/21/16 10/22/16 05:59 05:59 05:59 Intake Total 250 1350 500 Output Total 3000 2600 Balance -2750 -1250 500 - Physical Exam General Appearance: WD/WN, alert, no apparent distress, non-toxic Respiratory: lungs clear, normal breath sounds, No respiratory distress Cardiac/Chest: regular rate, rhythm, No tachycardia Abdomen: soft, No non-tender, No mass Skin: normal color, warm/dry, No rash Neuro/Psych: alert, oriented x 3, No normal mood/affect (Flat affect) ICD10 Worksheet Patient Problems: Problems Problem Status Diagnosed Abdominal pain Acute Aphasia Acute C. difficile diarrhea Acute 05/28/16 Dizziness Acute Intra-abdominal free air of unknown etiology Acute Neck pain Acute Thoracic back pain Acute Colitis Acute Dementia Acute Diarrhea Acute Failure to thrive in adult Acute Fall Acute Falls frequently Acute HTN (hypertension), malignant Acute Headache Acute Vomiting Acute Weakness generalized Acute
--- NOTE | 2016-10-21 11:51 | SOAPPROG ---
SOAP Progress Note Assessment/Plan: Assessment: s/p Medrano procedure for perforated sigmoid colon, likely due to diverticulitis failure to thrive/poor appetite and weakness postoperative ileus resolving WBC normal, CT without e/o abscess Plan: start coumadin encourage oral intake continue PT/OT 10/21/16 11:49 Subjective: nausea improving no e/o abscess on CT Objective: Vital Signs Temp Pulse Resp BP Pulse Ox 36.7 C 93 20 130/83 H 96 10/20/16 23:13 10/21/16 08:00 10/21/16 08:00 10/21/16 09:08 10/21/16 08:00 Laboratory Results 10/20/16 10:30 10/21/16 05:05 10/20/16 10/21/16 10/22/16 05:59 05:59 05:59 Intake Total 250 1350 500 Output Total 3000 2600 Balance -2750 -1250 500 PT 18.5 SEC (12.0-15.0) H 10/18/16 04:36 INR 1.54 (0.83-1.16) H 10/18/16 04:36 Physical Exam - Physical Exam General Appearance: alert Respiratory: lungs clear Cardiac/Chest: regular rate, rhythm Abdomen: soft, other (stool per colostomy today!) ICD10 Worksheet Patient Problems: Problems Problem Status Diagnosed Abdominal pain Acute Aphasia Acute C. difficile diarrhea Acute 05/28/16 Dizziness Acute Intra-abdominal free air of unknown etiology Acute Neck pain Acute Thoracic back pain Acute Colitis Acute Dementia Acute Diarrhea Acute Failure to thrive in adult Acute Fall Acute Falls frequently Acute HTN (hypertension), malignant Acute Headache Acute Vomiting Acute Weakness generalized Acute
[2016-10-21] MEDS ORDERED: NON-FORMULARY NEW DRUG (Omeprazole [Prilosec] 40 MG) PO SCH (12:00)
[2016-10-21] MEDS ORDERED: PANTOPRAZOLE SODIUM 40 MG TAB PO SCH (12:30)
[2016-10-21] MEDS: oxyCODONE IR 5 MG TAB PO PRN ×2 (16:16→18:17)
[2016-10-21] MEDS: WARFARIN SODIUM 4 MG TAB PO SCH (16:16)
[2016-10-21 18:15] LABS: POTASSIUM 4.7 mEq/L (3.5-5.2)
[2016-10-21] MEDS: PATCH REMOVAL 1 EA PATCH TD SCH (21:00)
[2016-10-22 06:20] LABS: POTASSIUM 4.7 mEq/L (3.5-5.2)
[2016-10-22 06:27] LABS: INR 1.14 (0.83-1.16); PROTIME(PATIENT) 14.5 SEC (12.0-15.0)
[2016-10-22] MEDS: LIDOCAINE 5% 1 EA PATCH TD SCH (10:13)
[2016-10-22] MEDS: DULoxetine 60 MG CAP PO SCH (10:18)
[2016-10-22] MEDS: ARIPiprazole 5 MG TAB PO SCH (10:18)
[2016-10-22] MEDS: FLUCONAZOLE/NaCl 100 MG in BAG 0 ML IV SCH (10:19)
[2016-10-22] MEDS: ERTAPENEM 1 GM in NS 100 ML IV SCH (10:19)
[2016-10-22] MEDS: PANTOPRAZOLE SODIUM 40 MG TAB PO SCH (10:19)
[2016-10-22] MEDS: HYDROCHLOROTHIAZIDE 25 MG TAB PO SCH (10:42)
[2016-10-22] MEDS: LOSARTAN POTASSIUM 50 MG TAB PO SCH ×2 (10:42→22:55)
[2016-10-22] MEDS: ENOXAPARIN 60 MG/0.6 ML SYR SC SCH ×2 (10:43→22:54)
[2016-10-22] MEDS: BRIMONIDINE 0.15% 5 ML OPHT.BTL RTEYE SCH ×2 (12:16→22:53)
--- NOTE | 2016-10-22 12:22 | SOAPPROG ---
SOAP Progress Note Assessment/Plan: Assessment: s/p Medrano procedure for perforated sigmoid colon, likely due to diverticulitis failure to thrive/poor appetite and weakness postoperative ileus resolving WBC normal, CT without e/o abscess Plan: encourage oral intake continue PT/OT 10/22/16 12:21 Subjective: still not hungry no gas or stool in colostomy today Objective: Vital Signs Temp Pulse Resp BP Pulse Ox 36.7 C 90 14 136/77 H 95 10/22/16 10:39 10/22/16 10:39 10/22/16 08:03 10/22/16 10:42 10/22/16 08:03 Microbiology 10/14/16 05:00 Gram Stain - Final Peritoneal Fluid - Aspirate Anaerobic Culture - Final Klebsiella Pneumoniae Ssp Pneu Clostridium Perfringens 10/14/16 05:00 Gram Stain - Final Peritoneal Fluid - Aspirate Anaerobic Culture - Final Klebsiella Pneumoniae Clostridium Perfringens Laboratory Results 10/20/16 10:30 10/22/16 05:30 10/21/16 10/22/16 10/23/16 05:59 05:59 05:59 Intake Total 1350 1300 Output Total 2600 450 Balance -1250 850 PT 14.5 SEC (12.0-15.0) 10/22/16 05:30 INR 1.14 (0.83-1.16) 10/22/16 05:30 Physical Exam - Physical Exam General Appearance: alert Respiratory: lungs clear Cardiac/Chest: regular rate, rhythm Abdomen: soft, No distended ICD10 Worksheet Patient Problems: Problems Problem Status Onset Abdominal pain Acute Intra-abdominal free air of unknown etiology Acute Aphasia Acute C. difficile diarrhea Acute 05/28/16 Colitis Acute Dementia Acute Diarrhea Acute Dizziness Acute Failure to thrive in adult Acute Fall Acute Falls frequently Acute HTN (hypertension), malignant Acute Headache Acute Neck pain Acute Thoracic back pain Acute Vomiting Acute Weakness generalized Acute
[2016-10-22] MEDS: oxyCODONE IR 5 MG TAB PO PRN ×2 (13:53→22:54)
--- NOTE | 2016-10-22 14:29 | WOCRNPDOC ---
[facility] Advanced Assessment Note - Skin Integrity Problem, Advanced Assess Sacrum Pressure Injury Dressing Type: Allevyn Life Dressing Description: Clean/Dry, Intact Exudate Amount: None Exudate Characteristic(s): None Integumentary Issue Intervention: Dressing Applied Marcia Wound Tissue: Blanching, Erythema, Dry Marcia Wound Swelling: None Wound Bed Color: Red Pressure Injury Stage: Stage 1 Pressure Injury Present on Admit: Yes Skin Integrity Problem Comment: Site continues to resolve, and is now blanching along margins. Color of wound has changed from purple/red to red, indicating it is not a SDTI. Continue with current tx. New Allevyn Life sacral dressing applied, and patient repositioned on her R side. tractor driver teamster Kaley present and assisting. Coccyx Pressure Injury Dressing Type: Allevyn Life Dressing Description: Clean/Dry, Intact Exudate Amount: None Exudate Characteristic(s): None Integumentary Issue Intervention: Dressing Applied Marcia Wound Tissue: Blanching, Erythema Marcia Wound Swelling: Mild Wound Bed Color: Red Pressure Injury Stage: Stage 1 Skin Integrity Problem Comment: Pinpoint area of non-blanching erythema noted directly over coccyx, improved since previous assessment and decreased in size. Skin remains intact. Reapplied an Allevyn Life sacral dressing. Continue w/ current tx.
--- NOTE | 2016-10-22 14:49 | PCMIDPN ---
Assessment/Plan: Assessment/Plan: 1. Polymicrobial Peritonitis secondary to perforated diverticulitis-s/p sigmoid resection, colostomy - s/p surgery on 10/14/16 -cx noted, expect to be polymicrobial process. -Currently on invanz and fluconazole for above. -Labs noted Creatinine and LFT's stable. -Ct noted. no abscess -Continue with current therapy for now. -D#05/22 Meds invanz 1g daily- 10/14/16 fluconazole 100mg daily- 10/17/16 Subjective: Afebrile. Actually smiling here and there today. More alert. Abd pain is the same, maybe a little less. Denies sob. Objective: Vital Signs Temp Pulse Resp BP Pulse Ox 36.7 C 90 14 136/77 H 95 10/22/16 10:39 10/22/16 10:39 10/22/16 08:03 10/22/16 10:42 10/22/16 08:03 Microbiology 10/14/16 05:00 Gram Stain - Final Peritoneal Fluid - Aspirate Anaerobic Culture - Final Klebsiella Pneumoniae Ssp Pneu Clostridium Perfringens 10/14/16 05:00 Gram Stain - Final Peritoneal Fluid - Aspirate Anaerobic Culture - Final Klebsiella Pneumoniae Clostridium Perfringens Laboratory Results 10/20/16 10:30 10/22/16 05:30 10/21/16 10/22/16 10/23/16 05:59 05:59 05:59 Intake Total 1350 1300 Output Total 2600 450 Balance -1250 850 - Physical Exam General Appearance: alert, no apparent distress Respiratory: lungs clear Cardiac/Chest: regular rate, rhythm Extremities: other (no swelling) Abdomen: normal bowel sounds, soft, distended, other (colostomy. non tender) Skin: other (no rash) ICD10 Worksheet Patient Problems: Problems Problem Status Onset Abdominal pain Acute Intra-abdominal free air of unknown etiology Acute Aphasia Acute C. difficile diarrhea Acute 05/28/16 Colitis Acute Dementia Acute Diarrhea Acute Dizziness Acute Failure to thrive in adult Acute Fall Acute Falls frequently Acute HTN (hypertension), malignant Acute Headache Acute Neck pain Acute Thoracic back pain Acute Vomiting Acute Weakness generalized Acute
[2016-10-22] MEDS: WARFARIN SODIUM 2 MG TAB PO SCH (16:00)
[2016-10-23] MEDS: PATCH REMOVAL 1 EA PATCH TD SCH ×2 (06:33→20:44)
[2016-10-23 07:16] LABS: INR 1.19 (0.83-1.16); PROTIME(PATIENT) 15.1 SEC (12.0-15.0)
[2016-10-23] MEDS ORDERED: HYDROmorphONE/DILAUDID 1 MG/ML SYR IVP PRN (08:11)
[2016-10-23] MEDS: ERTAPENEM 1 GM in NS 100 ML IV SCH (08:53)
--- NOTE | 2016-10-23 09:32 | PCMIDPN ---
Assessment/Plan: Polymicrobial Peritonitis secondary to perforated diverticulitis-s/p sigmoid resection, colostomy on 10/14/2016. Patient with postop ileus but recent CT shows no residual abscess. Cultures isolated Clostridium and Klebsiella but Gram stain suggests a polymicrobial. WBC normal since 10/18/2016. Evidence suggests good source control therefore can likely treat for shorter course of therapy, 14 days --DC Naik when feasible --plan antibiotics through 10/28/2016 --check CMP in AM Medication Ertapenem 1 g IV daily Fluconazole 100 mg daily Subjective: Patient with very flat affect without specific complaints other than feeling weakness Objective: Vital Signs Temp Pulse Resp BP Pulse Ox 36.7 C 88 18 114/70 96 10/23/16 09:13 10/23/16 09:13 10/23/16 09:13 10/23/16 09:13 10/23/16 09:13 Laboratory Results 10/20/16 10:30 10/22/16 05:30 10/22/16 10/23/16 10/24/16 05:59 05:59 05:59 Intake Total 1400 450 Output Total 450 1300 200 Balance 950 -850 -200 - Physical Exam General Appearance: alert, no apparent distress, other (Elderly, chronic ill appearance) Respiratory: other (Shallow inspiratory effort, no crackles) Neck: supple Cardiac/Chest: regular rate, rhythm Extremities: pedal edema Abdomen: normal bowel sounds, non-tender, distended (Slight), other (Midline surgical incision healing well without erythema, left lower quadrant ostomy without air or stool in bag) Pelvic Exam: naik Skin: pallor, No rash Neuro/Psych: depressed affect - Line/s RUE PICC Lines: No drainage, No erythema - Time Spent With Patient Time Spent with Patient: greater than 25 minutes (Coordination of care with Dr. Julieth Cuenca) Time Spent with Patient: Greater than 25 minutes spent on this patients care, greater than 50% of time spent counseling, educating, and coordinating care regarding the above mentioned plan. ICD10 Worksheet Patient Problems: Problems Problem Status Onset Abdominal pain Acute Intra-abdominal free air of unknown etiology Acute Aphasia Acute C. difficile diarrhea Acute 05/28/16 Colitis Acute Dementia Acute Diarrhea Acute Dizziness Acute Failure to thrive in adult Acute Fall Acute Falls frequently Acute HTN (hypertension), malignant Acute Headache Acute Neck pain Acute Thoracic back pain Acute Vomiting Acute Weakness generalized Acute
--- NOTE | 2016-10-23 09:39 | SOAPPROG ---
SOAP Progress Note Assessment/Plan: Assessment: s/p Medrano procedure for perforated sigmoid colon, likely due to diverticulitis failure to thrive/poor appetite and weakness postoperative ileus resolving Plan: encourage oral intake continue PT/OT 10/23/16 09:37 Subjective: still not much of an appetite Objective: Vital Signs Temp Pulse Resp BP Pulse Ox 36.7 C 88 18 114/70 96 10/23/16 09:13 10/23/16 09:13 10/23/16 09:13 10/23/16 09:13 10/23/16 09:13 Laboratory Results 10/20/16 10:30 10/22/16 05:30 10/22/16 10/23/16 10/24/16 05:59 05:59 05:59 Intake Total 1400 450 Output Total 450 1300 200 Balance 950 -850 -200 PT 15.1 SEC (12.0-15.0) H 10/23/16 06:35 INR 1.19 (0.83-1.16) H 10/23/16 06:35 Physical Exam - Physical Exam General Appearance: alert Abdomen: soft, other (incision without erythema, ostomy viable), No distended ICD10 Worksheet Patient Problems: Problems Problem Status Onset Abdominal pain Acute Intra-abdominal free air of unknown etiology Acute Aphasia Acute C. difficile diarrhea Acute 05/28/16 Colitis Acute Dementia Acute Diarrhea Acute Dizziness Acute Failure to thrive in adult Acute Fall Acute Falls frequently Acute HTN (hypertension), malignant Acute Headache Acute Neck pain Acute Thoracic back pain Acute Vomiting Acute Weakness generalized Acute
[2016-10-23] MEDS: HYDROCHLOROTHIAZIDE 25 MG TAB PO SCH (10:10)
[2016-10-23] MEDS: PANTOPRAZOLE SODIUM 40 MG TAB PO SCH (10:10)
[2016-10-23] MEDS: DULoxetine 60 MG CAP PO SCH (10:11)
[2016-10-23] MEDS: ARIPiprazole 5 MG TAB PO SCH (10:11)
[2016-10-23] MEDS: LOSARTAN POTASSIUM 50 MG TAB PO SCH ×2 (10:11→21:51)
[2016-10-23] MEDS: ENOXAPARIN 60 MG/0.6 ML SYR SC SCH ×2 (10:17→20:44)
[2016-10-23] MEDS: BRIMONIDINE 0.15% 5 ML OPHT.BTL RTEYE SCH ×2 (10:17→20:44)
[2016-10-23] MEDS: LIDOCAINE 5% 1 EA PATCH TD SCH (10:19)
[2016-10-23] MEDS: FLUCONAZOLE/NaCl 100 MG in BAG 0 ML IV SCH (10:26)
[2016-10-23] MEDS: ONDANSETRON 4 MG/2 ML VIAL IVP PRN (12:41)
[2016-10-23] MEDS: WARFARIN SODIUM 2 MG TAB PO SCH (16:16)
--- NOTE | 2016-10-23 18:24 | PDIAF ---
- Diagnosis Diagnosis: Abdominal abscess following diverticular perforation Code Status: Do Not Resuscitate - Medication Management Discharge Medications: Medications to Continue on Transfer Meclizine HCl [Meclizine HCl 12.5 mg (*)] 12.5 mg PO TID PRN 07/24/15 [Last Taken Unknown] Simvastatin [Zocor] 40 mg PO HS 07/24/15 [Last Taken Unknown] Ferrous Sulfate [Ferrous Sulf 325 MG (*)] 325 mg PO BIDMEAL 08/31/15 [Last Taken Unknown] Losartan Potassium [Cozaar 50 mg (*)] 50 mg PO DAILY 08/31/15 [Last Taken Unknown] Omeprazole [Prilosec] 40 mg PO DAILY 08/31/15 [Last Taken Unknown] ARIPiprazole [Abilify 5 mg (*)] 5 mg PO DAILY 10/14/16 [Last Taken Unknown] Acetaminophen [Tylenol 325mg (*)] 2 tab PO Q4 PRN 10/14/16 [Last Taken Unknown] Ascorbic Acid [Vitamin C 500 mg (*)] 500 mg PO DAILY 10/14/16 [Last Taken Unknown] Bisacodyl [Dulcolax] 10 mg RC DAILY PRN 10/14/16 [Last Taken Unknown] Brimonidine 0.15% [ALPHAGAN P 0.15% (RX)] 1 drops RTEYE BID 10/14/16 [Last Taken Unknown] Calcium Carbonate [Calcium] 500 mg PO BIDMEAL 10/14/16 [Last Taken Unknown] Calcium Carbonate [Tums 500MG (*)] 500 mg PO DAILY PRN 10/14/16 [Last Taken Unknown] Cyanocobalamin [Vitamin B12 (*)] 1,000 mcg PO DAILY 10/14/16 [Last Taken Unknown ] DULoxetine [Cymbalta 60 MG (*)] 60 mg PO BID 10/14/16 [Last Taken Unknown] Hydrochlorothiazide [HCTZ (*)] 25 mg PO DAILY 10/14/16 [Last Taken Unknown] Lidocaine 5% [Lidoderm 5% Patch (*)] 1 ea TD DAILY 10/14/16 [Last Taken Unknown] Losartan Potassium [Cozaar] 100 mg PO HS 10/14/16 [Last Taken Unknown] Multivitamins [Multivitamin (*)] 1 each PO DAILY 10/14/16 [Last Taken Unknown] Prochlorperazine Maleate [Compazine 10mg (*)] 10 mg PO Q6 PRN 10/14/16 [Last Taken Unknown] Warfarin Sodium [Coumadin 2MG (*)] 2 mg PO SUTUWETHSA@1600 10/14/16 [Last Taken Unknown] Warfarin Sodium [Coumadin 4MG (*)] 4 mg PO MOFR@1600 10/14/16 [Last Taken Unknown] 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 daily Alf Antibiotic Stop Date: 10/30/16 (No infectious disease follow-up needed ) Discharge Medications: Refer to the Discharge Home Medication list for PRN reason. PICC Care - Routine: Yes - Labs/Radiology CBC Date: 10/28/16 (Weekly, Friday) CMP Date: 10/28/16 (Weekly, Friday) Call or Fax Lab and Imaging Results to: Dr. Starks [phone] - Follow Up Care Current Providers and Referrals: Alvaro GILLETTE [Primary Care Provider] - As per Instructions
[2016-10-23] MEDS: oxyCODONE IR 5 MG TAB PO PRN (22:02)
[2016-10-24 06:02] LABS: INR 1.42 (0.83-1.16); PROTIME(PATIENT) 17.3 SEC (12.0-15.0)
[2016-10-24 06:20] LABS: ALANINE AMINOTRANSFERASE 26 IU/L (9-52); ALBUMIN 2.5 g/dL (3.5-5.0); ALKALINE PHOSPHATASE 55 IU/L (38-126); ANION GAP 6 mEq/L (8-16); ASPARTATE AMINOTRANSFERASE 16 IU/L (14-46); BILIRUBIN,TOTAL 0.4 mg/dL (0.1-1.4); CALCIUM 8.6 mg/dL (8.5-10.4); CARBON DIOXIDE 33 mEq/l (22-31); CHLORIDE 96 mEq/L (97-110); CREATININE 0.6 mg/dL (0.6-1.0); GLOMERULAR FILTRATION RATE > 60; GLUCOSE 111 mg/dL (70-100); POTASSIUM 4.4 mEq/L (3.5-5.2); SODIUM 135 mEq/L (134-144)
--- NOTE | 2016-10-24 09:20 | SOAPPROG ---
SOAP Progress Note Assessment/Plan: Assessment: s/p Medrano procedure for perforated sigmoid colon, likely due to diverticulitis failure to thrive/poor appetite and weakness Plan: encourage oral intake calorie count continue PT/OT 10/24/16 09:19 Subjective: reportedly eating more minimal stool per colostomy Objective: Vital Signs Temp Pulse Resp BP Pulse Ox 36.4 C 94 16 140/69 H 94 10/24/16 04:33 10/24/16 04:33 10/24/16 04:33 10/24/16 04:33 10/24/16 04:33 Laboratory Results 10/20/16 10:30 10/24/16 05:40 10/23/16 10/24/16 10/25/16 05:59 05:59 05:59 Intake Total 450 631 Output Total 1300 200 Balance -850 431 PT 17.3 SEC (12.0-15.0) H 10/24/16 05:40 INR 1.42 (0.83-1.16) H 10/24/16 05:40 Physical Exam - Physical Exam General Appearance: alert Respiratory: lungs clear Cardiac/Chest: regular rate, rhythm Abdomen: soft, other (incision without erythema), No distended ICD10 Worksheet Patient Problems: Problems Problem Status Onset Abdominal pain Acute Intra-abdominal free air of unknown etiology Acute Aphasia Acute C. difficile diarrhea Acute 05/28/16 Colitis Acute Dementia Acute Diarrhea Acute Dizziness Acute Failure to thrive in adult Acute Fall Acute Falls frequently Acute HTN (hypertension), malignant Acute Headache Acute Neck pain Acute Thoracic back pain Acute Vomiting Acute Weakness generalized Acute
--- NOTE | 2016-10-24 09:57 | PCMIDPN ---
Assessment/Plan: Assessment: Peritonitis status post ruptured sigmoid colon. Currently covered with ertapenem and fluconazole. Clinically the patient looks much better than she did at the beginning of the week. Plan to continue both the ertapenem in the Diflucan through 10/30/2016 and follow her clinical course forward. Plan: 1. Continue both ertapenem and fluconazole. 2. Follow patient's clinical course. 3. Stop date 10/30/2016 as said in the inter agency form. Subjective: Patient is more alert and interactive than earlier this week. She is eating. No new complaints. No fevers or chills. Objective: Ertapenem # 10 Fluconazole # 9 Vital Signs Temp Pulse Resp BP Pulse Ox 36.8 C 95 16 106/70 94 10/24/16 08:00 10/24/16 08:00 10/24/16 08:00 10/24/16 08:00 10/24/16 08:00 Laboratory Results 10/20/16 10:30 10/24/16 05:40 10/23/16 10/24/16 10/25/16 05:59 05:59 05:59 Intake Total 450 631 Output Total 1300 200 Balance -850 431 - Physical Exam General Appearance: WD/WN, alert, no apparent distress, non-toxic Respiratory: lungs clear, normal breath sounds, No respiratory distress Cardiac/Chest: regular rate, rhythm, No tachycardia Extremities: non-tender, normal inspection Abdomen: non-tender (To mild palpation.), soft, No mass Skin: normal color, warm/dry, No rash Neuro/Psych: alert ICD10 Worksheet Patient Problems: Problems Problem Status Onset Abdominal pain Acute Intra-abdominal free air of unknown etiology Acute Aphasia Acute C. difficile diarrhea Acute 05/28/16 Colitis Acute Dementia Acute Diarrhea Acute Dizziness Acute Failure to thrive in adult Acute Fall Acute Falls frequently Acute HTN (hypertension), malignant Acute Headache Acute Neck pain Acute Thoracic back pain Acute Vomiting Acute Weakness generalized Acute
[2016-10-24] MEDS: HYDROCHLOROTHIAZIDE 25 MG TAB PO SCH (10:22)
[2016-10-24] MEDS: PANTOPRAZOLE SODIUM 40 MG TAB PO SCH (10:23)
[2016-10-24] MEDS: FLUCONAZOLE 100 MG TAB PO SCH (10:23)
[2016-10-24] MEDS: ARIPiprazole 5 MG TAB PO SCH (10:23)
[2016-10-24] MEDS: ERTAPENEM 1 GM in NS 100 ML IV SCH (10:23)
[2016-10-24] MEDS: LOSARTAN POTASSIUM 50 MG TAB PO SCH ×2 (10:23→20:25)
[2016-10-24] MEDS: DULoxetine 60 MG CAP PO SCH (10:23)
[2016-10-24] MEDS: ENOXAPARIN 60 MG/0.6 ML SYR SC SCH ×2 (10:37→20:26)
[2016-10-24] MEDS: LIDOCAINE 5% 1 EA PATCH TD SCH (10:40)
[2016-10-24] MEDS: BRIMONIDINE 0.15% 5 ML OPHT.BTL RTEYE SCH ×2 (10:44→20:26)
[2016-10-24] MEDS: ONDANSETRON 4 MG/2 ML VIAL IVP PRN (13:26)
[2016-10-24] MEDS: WARFARIN SODIUM 2 MG TAB PO SCH (16:00)
[2016-10-24] MEDS: oxyCODONE IR 5 MG TAB PO PRN (21:35)
[2016-10-24] MEDS: PATCH REMOVAL 1 EA PATCH TD SCH (22:45)
[2016-10-25] MEDS: ALTEPLASE 2 MG VIAL IVP PRN (06:45)
--- NOTE | 2016-10-25 07:29 | SOAPPROG ---
SOAP Progress Note Assessment/Plan: Assessment: s/p Medrano procedure for perforated sigmoid colon, likely due to diverticulitis failure to thrive/poor appetite and weakness Plan: encourage oral intake continue calorie count continue PT/OT 10/25/16 07:28 Subjective: sleeping this a.m. some gas in colostomy bag Objective: Vital Signs Temp Pulse Resp BP Pulse Ox 36.6 C 94 18 107/73 97 10/25/16 02:00 10/25/16 02:00 10/25/16 02:00 10/25/16 02:00 10/25/16 02:00 Laboratory Results 10/20/16 10:30 10/24/16 05:40 10/24/16 10/25/16 10/26/16 05:59 05:59 05:59 Intake Total 631 700 Output Total 200 Balance 431 700 PT 17.3 SEC (12.0-15.0) H 10/24/16 05:40 INR 1.42 (0.83-1.16) H 10/24/16 05:40 Physical Exam - Physical Exam General Appearance: other (sleeping) Respiratory: lungs clear Cardiac/Chest: regular rate, rhythm Abdomen: soft, other (incision without erythema), No distended ICD10 Worksheet Patient Problems: Problems Problem Status Onset Abdominal pain Acute Intra-abdominal free air of unknown etiology Acute Aphasia Acute C. difficile diarrhea Acute 05/28/16 Colitis Acute Dementia Acute Diarrhea Acute Dizziness Acute Failure to thrive in adult Acute Fall Acute Falls frequently Acute HTN (hypertension), malignant Acute Headache Acute Neck pain Acute Thoracic back pain Acute Vomiting Acute Weakness generalized Acute
[2016-10-25] MEDS: ERTAPENEM 1 GM in NS 100 ML IV SCH (09:16)
[2016-10-25 09:33] LABS: INR 1.97 (0.83-1.16); PROTIME(PATIENT) 22.5 SEC (12.0-15.0)
[2016-10-25] MEDS: HYDROCHLOROTHIAZIDE 25 MG TAB PO SCH (11:29)
[2016-10-25] MEDS: DULoxetine 60 MG CAP PO SCH (11:29)
[2016-10-25] MEDS: FLUCONAZOLE 100 MG TAB PO SCH (11:30)
[2016-10-25] MEDS: LOSARTAN POTASSIUM 50 MG TAB PO SCH ×2 (11:30→20:28)
[2016-10-25] MEDS: PANTOPRAZOLE SODIUM 40 MG TAB PO SCH (11:30)
[2016-10-25] MEDS: ARIPiprazole 5 MG TAB PO SCH (11:30)
[2016-10-25] MEDS: ENOXAPARIN 60 MG/0.6 ML SYR SC SCH ×2 (11:30→20:28)
[2016-10-25] MEDS: LIDOCAINE 5% 1 EA PATCH TD SCH (11:31)
[2016-10-25] MEDS: BRIMONIDINE 0.15% 5 ML OPHT.BTL RTEYE SCH ×2 (11:31→20:29)
[2016-10-25] MEDS: oxyCODONE IR 5 MG TAB PO PRN (13:31)
[2016-10-25] MEDS: WARFARIN SODIUM 4 MG TAB PO SCH (16:49)
[2016-10-25] MEDS: PATCH REMOVAL 1 EA PATCH TD SCH (20:29)
[2016-10-26] MEDS: ALTEPLASE 2 MG VIAL IVP PRN ×2 (08:46→20:18)
--- NOTE | 2016-10-26 09:28 | SOAPPROG ---
SOAP Progress Note Assessment/Plan: Assessment:s/p emergent colectomy/Richard's procedure for perforated diverticulitis dementia w/ multiple medical problems appears to be recovering slowly but steadily Plan: Continue to increase activity and diet, continue IV Abx TELEPHONE CLAIMS REPRESENTATIVE consult 10/26/16 09:25 Objective: Vital Signs Temp Pulse Resp BP Pulse Ox 37 C 83 16 111/63 93 10/26/16 07:56 10/26/16 07:56 10/26/16 04:39 10/26/16 07:56 10/26/16 07:56 Laboratory Results 10/20/16 10:30 10/24/16 05:40 10/25/16 10/26/16 10/27/16 05:59 05:59 05:59 Intake Total 700 800 Balance 700 800 PT REJ 10/26/16 04:59 INR REJ 10/26/16 04:59 Physical Exam - Physical Exam General Appearance: other (dementia/can't remember if she had breakfast/does not want to get out of bed) Respiratory: decreased breath sounds Cardiac/Chest: regular rate, rhythm Abdomen: non-tender, soft, other (healing midline/LLQ colostomy without significant output this AM) Neuro/Psych: disoriented to time, depressed affect ICD10 Worksheet Patient Problems: Problems Problem Status Onset Abdominal pain Acute Intra-abdominal free air of unknown etiology Acute Aphasia Acute C. difficile diarrhea Acute 05/28/16 Colitis Acute Dementia Acute Diarrhea Acute Dizziness Acute Failure to thrive in adult Acute Fall Acute Falls frequently Acute HTN (hypertension), malignant Acute Headache Acute Neck pain Acute Thoracic back pain Acute Vomiting Acute Weakness generalized Acute
[2016-10-26] MEDS: ARIPiprazole 5 MG TAB PO SCH (10:04)
[2016-10-26] MEDS: HYDROCHLOROTHIAZIDE 25 MG TAB PO SCH (10:04)
[2016-10-26] MEDS: LIDOCAINE 5% 1 EA PATCH TD SCH (10:04)
[2016-10-26] MEDS: DULoxetine 60 MG CAP PO SCH (10:04)
[2016-10-26] MEDS: ERTAPENEM 1 GM in NS 100 ML IV SCH (10:04)
[2016-10-26] MEDS: ENOXAPARIN 60 MG/0.6 ML SYR SC SCH ×2 (10:05→20:18)
[2016-10-26] MEDS: PANTOPRAZOLE SODIUM 40 MG TAB PO SCH (10:05)
[2016-10-26] MEDS: FLUCONAZOLE 100 MG TAB PO SCH (10:05)
[2016-10-26] MEDS: LOSARTAN POTASSIUM 50 MG TAB PO SCH ×2 (10:05→20:24)
[2016-10-26] MEDS: oxyCODONE IR 5 MG TAB PO PRN ×2 (10:28→20:16)
[2016-10-26] MEDS: BRIMONIDINE 0.15% 5 ML OPHT.BTL RTEYE SCH ×2 (11:19→20:19)
[2016-10-26 11:44] LABS: INR 1.79 (0.83-1.16); PROTIME(PATIENT) 20.9 SEC (12.0-15.0)
[2016-10-26] MEDS: WARFARIN SODIUM 2 MG TAB PO SCH (17:03)
[2016-10-26] MEDS: ONDANSETRON 4 MG/2 ML VIAL IVP PRN (18:02)
[2016-10-26] MEDS: PATCH REMOVAL 1 EA PATCH TD SCH (20:24)
[2016-10-27 06:28] LABS: INR 1.83 (0.83-1.16); PROTIME(PATIENT) 21.2 SEC (12.0-15.0)
--- NOTE | 2016-10-27 06:52 | SOAPPROG ---
Downtime Inpatient Late Entry SOAP Note: Krysta is somnolent/remains confused AFVSS abd: soft/+BS, incision o.k./+ colostomy output Imp: s/p end colostomy/Richard's procedure severe dementia ? baseline Rec: DC Oxycontin continue Abx ? placement S MD Maida, FACS
[2016-10-27] MEDS: SENNOSIDES/DOCUSATE SODIUM TAB PO SCH ×2 (09:50→21:05)
[2016-10-27] MEDS: oxyCODONE IR 5 MG TAB PO PRN ×3 (09:50→21:05)
[2016-10-27] MEDS: PANTOPRAZOLE SODIUM 40 MG TAB PO SCH (09:50)
[2016-10-27] MEDS: DULoxetine 60 MG CAP PO SCH (09:51)
[2016-10-27] MEDS: ARIPiprazole 5 MG TAB PO SCH (09:51)
[2016-10-27] MEDS: FLUCONAZOLE 100 MG TAB PO SCH (09:51)
[2016-10-27] MEDS: BRIMONIDINE 0.15% 5 ML OPHT.BTL RTEYE SCH ×2 (09:51→21:06)
[2016-10-27] MEDS: ERTAPENEM 1 GM in NS 100 ML IV SCH (09:56)
[2016-10-27] MEDS: ENOXAPARIN 60 MG/0.6 ML SYR SC SCH ×2 (09:56→21:03)
[2016-10-27] MEDS: LIDOCAINE 5% 1 EA PATCH TD SCH (09:56)
[2016-10-27] MEDS: HYDROCHLOROTHIAZIDE 25 MG TAB PO SCH (10:18)
[2016-10-27] MEDS: LOSARTAN POTASSIUM 50 MG TAB PO SCH ×2 (10:18→21:05)
[2016-10-27] MEDS: WARFARIN SODIUM 2 MG TAB PO SCH (16:24)
[2016-10-27] MEDS: PATCH REMOVAL 1 EA PATCH TD SCH (21:05)
[2016-10-28] MEDS: oxyCODONE IR 5 MG TAB PO PRN ×3 (01:09→22:29)
[2016-10-28 05:53] LABS: INR 2.08 (0.83-1.16); PROTIME(PATIENT) 23.5 SEC (12.0-15.0)
[2016-10-28] MEDS: LIDOCAINE 5% 1 EA PATCH TD SCH ×2 (08:25→08:27)
[2016-10-28] MEDS: ERTAPENEM 1 GM in NS 100 ML IV SCH (08:27)
[2016-10-28] MEDS: PANTOPRAZOLE SODIUM 40 MG TAB PO SCH (08:28)
[2016-10-28] MEDS: FLUCONAZOLE 100 MG TAB PO SCH (08:28)
[2016-10-28] MEDS: SENNOSIDES/DOCUSATE SODIUM TAB PO SCH ×2 (08:28→22:29)
[2016-10-28] MEDS: DULoxetine 60 MG CAP PO SCH (08:28)
[2016-10-28] MEDS: ARIPiprazole 5 MG TAB PO SCH (08:28)
[2016-10-28] MEDS: ENOXAPARIN 60 MG/0.6 ML SYR SC SCH (08:28)
[2016-10-28] MEDS: BRIMONIDINE 0.15% 5 ML OPHT.BTL RTEYE SCH ×2 (08:29→22:30)
[2016-10-28] MEDS: LOSARTAN POTASSIUM 50 MG TAB PO SCH ×2 (08:30→22:30)
[2016-10-28] MEDS: HYDROCHLOROTHIAZIDE 25 MG TAB PO SCH (08:30)
--- NOTE | 2016-10-28 11:19 | SOAPPROG ---
SOAP Progress Note Assessment/Plan: Assessment:s/p emergent colectomy/Richard's procedure for perforated diverticulitis dementia w/ multiple medical problems appears to be recovering slowly but steadily Plan: Continue to increase activity and diet, continue IV Abx until 10/30 wean narcotics CHIEF OF SURGERY consult for placement 10/26/16 09:25 10/28/16 11:18 Subjective: somnolent/awakens with verbal stimuli Objective: Vital Signs Temp Pulse Resp BP Pulse Ox 36.8 C 88 16 116/61 2 L 10/28/16 07:52 10/28/16 07:52 10/28/16 07:52 10/28/16 08:30 10/28/16 07:52 Laboratory Results 10/20/16 10:30 10/24/16 05:40 10/27/16 10/28/16 10/29/16 05:59 05:59 05:59 Intake Total 950 2500 Output Total 0 Balance 950 2500 PT 23.5 SEC (12.0-15.0) H 10/28/16 05:00 INR 2.08 (0.83-1.16) H 10/28/16 05:00 Physical Exam - Physical Exam General Appearance: thin Respiratory: normal breath sounds Cardiac/Chest: regular rate, rhythm Abdomen: soft, other (healing midline incision/LLQ colostomy with good output) ICD10 Worksheet Patient Problems: Problems Problem Status Onset Abdominal pain Acute Intra-abdominal free air of unknown etiology Acute Aphasia Acute C. difficile diarrhea Acute 05/28/16 Colitis Acute Dementia Acute Diarrhea Acute Dizziness Acute Failure to thrive in adult Acute Fall Acute Falls frequently Acute HTN (hypertension), malignant Acute Headache Acute Neck pain Acute Thoracic back pain Acute Vomiting Acute Weakness generalized Acute
--- NOTE | 2016-10-28 17:47 | WOCRNPDOC ---
WOCRN Advanced Assessment Note - Skin Integrity Problem, Advanced Assess Sacrum Pressure Injury Dressing Type: Allevyn Life Wound Bed Constitution: Healed Pressure Injury Stage: Stage 1 Pressure Injury Present on Admit: Yes Skin Integrity Problem Comment: Resolved. Will no longer follow. Asked NELSON Kaley to pass on to keep patient brief and Allevyn Life free. Coccyx Pressure Injury Dressing Type: Allevyn Life Pressure Injury Stage: Stage 1 Pressure Injury Present on Admit: Yes Skin Integrity Problem Comment: Unchanged. Will round again in one week.
[2016-10-28] MEDS: WARFARIN SODIUM 4 MG TAB PO SCH (18:12)
[2016-10-28] MEDS: PATCH REMOVAL 1 EA PATCH TD SCH (22:30)
[2016-10-29 06:18] LABS: % IMMATURE GRANULYOCYTES 0.5 % (0.0-1.1); ABSOLUTE IMMATURE GRANULOCYTES 0.03 10^3/uL (0.00-0.10); ADD DIFF? NO; ADD MORPH? NO; ADD SCAN? NO; ATYPICAL LYMPHOCYTE FLAG 0 (0-99); FRAGMENT RBC FLAG 0 (0-99); HEMATOCRIT 27.4 % (38.0-47.0); HEMOGLOBIN 8.8 g/dL (12.6-16.3); LEFT SHIFT FLG 0 (0-99); LIPEMIA HEMOLYSIS FLAG 80 (0-99); MEAN CELL HEMOGLOBIN 31.8 pg (27.9-34.1); MEAN CELL HEMOGLOBIN CONCENTR. 32.1 g/dL (32.4-36.7); MEAN CELL VOLUME 98.9 fL (81.5-99.8); MEAN PLATELET VOLUME 8.9 fL (8.7-11.7); PLATELET CLUMPS FLAG 10 (0-99); PLATELET COUNT 555 10^3/uL (150-400); RED BLOOD CELL COUNT 2.77 10^6/uL (4.18-5.33); RED CELL DISTRIBUTION WIDTH 13.7 % (11.5-15.2)
[2016-10-29 06:30] LABS: INR 2.01 (0.83-1.16); PROTIME(PATIENT) 22.9 SEC (12.0-15.0)
[2016-10-29 06:57] LABS: ALANINE AMINOTRANSFERASE 29 IU/L (9-52); ALBUMIN 2.9 g/dL (3.5-5.0); ALKALINE PHOSPHATASE 62 IU/L (38-126); ANION GAP 7 mEq/L (8-16); ASPARTATE AMINOTRANSFERASE 17 IU/L (14-46); BILIRUBIN,TOTAL 0.5 mg/dL (0.1-1.4); CALCIUM 9.4 mg/dL (8.5-10.4); CARBON DIOXIDE 31 mEq/l (22-31); CHLORIDE 98 mEq/L (97-110); CREATININE 0.5 mg/dL (0.6-1.0); GLOMERULAR FILTRATION RATE > 60; GLUCOSE 100 mg/dL (70-100); POTASSIUM 4.5 mEq/L (3.5-5.2); SODIUM 136 mEq/L (134-144); TOTAL PROTEIN 5.4 g/dL (6.3-8.2)
--- NOTE | 2016-10-29 07:43 | SOAPPROG ---
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 for placement 10/26/16 09:25 10/28/16 11:18 10/29/16 07:40 Objective: Vital Signs Temp Pulse Resp BP Pulse Ox 36.6 C 90 18 124/83 H 90 L 10/29/16 06:39 10/29/16 06:39 10/29/16 06:39 10/29/16 06:39 10/29/16 06:39 Laboratory Results 10/29/16 06:15 10/29/16 06:15 10/28/16 10/29/16 10/30/16 05:59 05:59 05:59 Intake Total 2500 1000 Balance 2500 1000 PT 22.9 SEC (12.0-15.0) H 10/29/16 06:15 INR 2.01 (0.83-1.16) H 10/29/16 06:15 Physical Exam - Physical Exam General Appearance: alert, other (has no memory of surgery or much of subsequent events) Respiratory: lungs clear Cardiac/Chest: regular rate, rhythm Abdomen: soft, distended, other (colostomy with firm stool output/proximal colon distended with stool) Neuro/Psych: depressed affect (O x 2) ICD10 Worksheet Patient Problems: Problems Problem Status Onset Abdominal pain Acute Intra-abdominal free air of unknown etiology Acute Aphasia Acute C. difficile diarrhea Acute 05/28/16 Colitis Acute Dementia Acute Diarrhea Acute Dizziness Acute Failure to thrive in adult Acute Fall Acute Falls frequently Acute HTN (hypertension), malignant Acute Headache Acute Neck pain Acute Thoracic back pain Acute Vomiting Acute Weakness generalized Acute
[2016-10-29] MEDS: ONDANSETRON 4 MG/2 ML VIAL IVP PRN ×3 (09:31→22:07)
[2016-10-29] MEDS: ERTAPENEM 1 GM in NS 100 ML IV SCH (09:33)
[2016-10-29] MEDS: ARIPiprazole 5 MG TAB PO SCH (09:41)
[2016-10-29] MEDS: SENNOSIDES/DOCUSATE SODIUM TAB PO SCH ×2 (09:41→21:38)
[2016-10-29] MEDS: FLUCONAZOLE 100 MG TAB PO SCH (09:41)
[2016-10-29] MEDS: DULoxetine 60 MG CAP PO SCH (09:41)
[2016-10-29] MEDS: HYDROCHLOROTHIAZIDE 25 MG TAB PO SCH (09:41)
[2016-10-29] MEDS: PANTOPRAZOLE SODIUM 40 MG TAB PO SCH (09:42)
[2016-10-29] MEDS: oxyCODONE IR 5 MG TAB PO PRN ×4 (09:42→21:38)
[2016-10-29] MEDS: LOSARTAN POTASSIUM 50 MG TAB PO SCH ×2 (09:42→21:41)
[2016-10-29] MEDS: LACTULOSE 20 GM/30 ML UDCUP PO SCH ×3 (09:43→21:47)
[2016-10-29] MEDS: LIDOCAINE 5% 1 EA PATCH TD SCH (09:43)
[2016-10-29] MEDS: BRIMONIDINE 0.15% 5 ML OPHT.BTL RTEYE SCH ×2 (10:13→21:42)
[2016-10-29] MEDS: WARFARIN SODIUM 2 MG TAB PO SCH (16:08)
[2016-10-29] MEDS: PATCH REMOVAL 1 EA PATCH TD SCH (21:41)
[2016-10-30] MEDS ORDERED: PROMETHAZINE HCL 25 MG/ML INJ IV PRN (00:05)
--- NOTE | 2016-10-30 09:16 | SOAPPROG ---
SOAP Progress Note Assessment/Plan: Assessment:s/p emergent colectomy/Richard's procedure for perforated diverticulitis/sepsis at time of admission dementia w/ multiple medical problems-including HTN, depression altered mental status secondary to medications, sepsis mild obstipation/distention Plan: Continue to increase activity and diet, stool softners, stop IV Abx/ discussed with ID stop narcotics/phenergan-hopefully baseline mental status will return SUPPLY PLANNER consult for placement 10/26/16 09:25 10/28/16 11:18 10/29/16 07:40 10/30/16 09:10 Subjective: somnolent/vomitted last night and received Phenergan around 02:00 Objective: Vital Signs Temp Pulse Resp BP Pulse Ox 36.9 C 99 14 132/80 H 92 10/30/16 08:14 10/30/16 08:14 10/30/16 08:14 10/30/16 08:14 10/30/16 08:14 Laboratory Results 10/29/16 06:15 10/29/16 06:15 10/29/16 10/30/16 10/31/16 05:59 05:59 05:59 Intake Total 1000 725 Output Total 75 500 Balance 1000 650 -500 PT 22.9 SEC (12.0-15.0) H 10/29/16 06:15 INR 2.01 (0.83-1.16) H 10/29/16 06:15 Physical Exam - Physical Exam General Appearance: obtunded Abdomen: non-tender, soft, other (LLQ colostomy with improved output, incision o.k.) ICD10 Worksheet Patient Problems: Problems Problem Status Onset Abdominal pain Acute Intra-abdominal free air of unknown etiology Acute Aphasia Acute C. difficile diarrhea Acute 05/28/16 Colitis Acute Dementia Acute Diarrhea Acute Dizziness Acute Failure to thrive in adult Acute Fall Acute Falls frequently Acute HTN (hypertension), malignant Acute Headache Acute Neck pain Acute Thoracic back pain Acute Vomiting Acute Weakness generalized Acute
[2016-10-30] MEDS: SENNOSIDES/DOCUSATE SODIUM TAB PO SCH ×2 (09:18→21:37)
[2016-10-30] MEDS: FLUCONAZOLE 100 MG TAB PO SCH (09:18)
[2016-10-30] MEDS: HYDROCHLOROTHIAZIDE 25 MG TAB PO SCH (09:19)
[2016-10-30] MEDS: LOSARTAN POTASSIUM 50 MG TAB PO SCH ×2 (09:19→21:37)
[2016-10-30] MEDS: LIDOCAINE 5% 1 EA PATCH TD SCH (09:20)
[2016-10-30] MEDS: ARIPiprazole 5 MG TAB PO SCH (09:20)
[2016-10-30] MEDS: PANTOPRAZOLE SODIUM 40 MG TAB PO SCH (09:20)
[2016-10-30] MEDS: DULoxetine 60 MG CAP PO SCH (09:20)
[2016-10-30] MEDS: ERTAPENEM 1 GM in NS 100 ML IV SCH (09:21)
[2016-10-30] MEDS: BRIMONIDINE 0.15% 5 ML OPHT.BTL RTEYE SCH ×2 (10:30→21:37)
[2016-10-30] MEDS: WARFARIN SODIUM 2 MG TAB PO SCH (16:14)
[2016-10-30] MEDS: PATCH REMOVAL 1 EA PATCH TD SCH (21:37)
[2016-10-31 06:15] LABS: INR 2.47 (0.83-1.16)
--- NOTE | 2016-10-31 06:15 | PDIAF ---
- Diagnosis Diagnosis: Abdominal abscess following diverticular perforation Code Status: Do Not Resuscitate - Medication Management Discharge Medications: Medications to Continue on Transfer Meclizine HCl [Meclizine HCl 12.5 mg (*)] 12.5 mg PO TID PRN 07/24/15 [Last Taken Unknown] Simvastatin [Zocor] 40 mg PO HS 07/24/15 [Last Taken Unknown] Ferrous Sulfate [Ferrous Sulf 325 MG (*)] 325 mg PO BIDMEAL 08/31/15 [Last Taken Unknown] Losartan Potassium [Cozaar 50 mg (*)] 50 mg PO DAILY 08/31/15 [Last Taken Unknown] Omeprazole [Prilosec] 40 mg PO DAILY 08/31/15 [Last Taken Unknown] ARIPiprazole [Abilify 5 mg (*)] 5 mg PO DAILY 10/14/16 [Last Taken Unknown] Acetaminophen [Tylenol 325mg (*)] 2 tab PO Q4 PRN 10/14/16 [Last Taken Unknown] Ascorbic Acid [Vitamin C 500 mg (*)] 500 mg PO DAILY 10/14/16 [Last Taken Unknown] Brimonidine 0.15% [Alphagan P 0.15%] 1 drops RTEYE BID 10/14/16 [Last Taken Unknown] Calcium Carbonate [Calcium] 500 mg PO BIDMEAL 10/14/16 [Last Taken Unknown] Calcium Carbonate [Tums 500MG (*)] 500 mg PO DAILY PRN 10/14/16 [Last Taken Unknown] Cyanocobalamin [Vitamin B12 (*)] 1,000 mcg PO DAILY 10/14/16 [Last Taken Unknown ] DULoxetine [Cymbalta 60 MG (*)] 60 mg PO BID 10/14/16 [Last Taken Unknown] Hydrochlorothiazide [HCTZ (*)] 25 mg PO DAILY 10/14/16 [Last Taken Unknown] Lidocaine 5% [Lidoderm 5% Patch (*)] 1 ea TD DAILY 10/14/16 [Last Taken Unknown] Losartan Potassium [Cozaar] 100 mg PO HS 10/14/16 [Last Taken Unknown] Multivitamins [Multivitamin (*)] 1 each PO DAILY 10/14/16 [Last Taken Unknown] Warfarin Sodium [Coumadin 2MG (*)] 2 mg PO SUTUWETHSA@1600 10/14/16 [Last Taken Unknown] Warfarin Sodium [Coumadin 4MG (*)] 4 mg PO MOFR@1600 10/14/16 [Last Taken Unknown] ARIPiprazole [Abilify 5 mg (*)] 5 mg PO DAILY #0 tab 10/31/16 [Last Taken Unknown] Brimonidine 0.15% [Alphagan P 0.15%] 1 drops RTEYE BID #0 opht.btl 10/31/16 [ Last Taken Unknown] DULoxetine [Cymbalta 60 MG (*)] 60 mg PO DAILY #0 cap 10/31/16 [Last Taken Unknown] Hydrochlorothiazide [HCTZ (*)] 25 mg PO DAILY #0 tab 10/31/16 [Last Taken Unknown] Lidocaine 5% [Lidoderm 5% Patch (*)] 1 ea TD DAILY #0 patch 10/31/16 [Last Taken Unknown] Losartan Potassium [Cozaar 50 mg (*)] 50 mg PO DAILY #0 tab 10/31/16 [Last Taken Unknown] Losartan Potassium [Cozaar 50 mg (*)] 100 mg PO HS #0 tab 10/31/16 [Last Taken Unknown] Meclizine HCl [Meclizine HCl 12.5 mg (*)] 12.5 mg PO TID PRN #0 tab 10/31/16 [ Last Taken Unknown] Ondansetron HCl Pf [Zofran 4 mg Inj (*)] 4 mg IVP Q4 PRN #0 vial 10/31/16 [ Last Taken Unknown] Pantoprazole Sodium [Protonix 40mg (*)] 40 mg PO DAILY #0 tab 10/31/16 [Last Taken Unknown] Patch Removal 1 ea TD DAILY21 #0 patch 10/31/16 [Last Taken Unknown] Sennosides/Docusate Sodium [Senokot-S] 1 tab PO BID #0 tab 10/31/16 [Last Taken Unknown] Warfarin Sodium [Coumadin 2MG (*)] 2 mg PO SUTUWETHSA@1600 #0 tab 10/31/16 [ Last Taken Unknown] Warfarin Sodium [Coumadin 4MG (*)] 4 mg PO MOFR@1600 #0 tab 10/31/16 [Last Taken Unknown] Mortgage Loan Counselor Antibiotics: Ertapenem 1 g IV daily, fluconazole 200 mg p.o. daily Mortgage Loan Counselor Antibiotic Stop Date: 10/30/16 (No infectious disease follow-up needed ) Discharge Medications: Refer to the Discharge Home Medication list for PRN reason. PICC Care - Routine: Yes - Orders Services needed: Registered Nurse, Certified Principal Archaeologist, Master Research And Development Chemist , Physical Therapy, Occupational Therapy Diet Recommendation: no restrictions on diet Diet Texture: Regular Texture Diet Weigh Patient: weekly Flores: Not applicable Wound Care Instructions: change ostomoy appliance 2 x weekly and as needed - Labs/Radiology CBC Date: 10/28/16 (Weekly, Friday) CMP Date: 10/28/16 (Weekly, Friday) PT/INR Date: 11/04/16 (Weekly, Friday) Call or Fax Lab and Imaging Results to: Dr. Starks [phone] - Follow Up Care Current Providers and Referrals: Alvaro GILLETTE [Primary Care Provider] - As per Instructions
[2016-10-31] MEDS ORDERED: traMADol 50 MG TAB PO PRN (06:23)
--- NOTE | 2016-10-31 06:23 | SOAPPROG ---
Downtime Inpatient Late Entry SOAP Note: #[id number] JOSE Bey MD, FACS
--- NOTE | 2016-10-31 06:50 | GDS ---
DISCHARGE DIAGNOSES: 1. Perforated sigmoid colon with peritonitis. 2. Sepsis. 3. Hypertension. 4. Vascular dementia. 5. History of cerebrovascular accident. 6. History of transient ischemic attack. 7. History of C diff colitis. 8. Urinary tract infection. 9. Chronic hypoxia. 10. Gastroesophageal reflux disease. 11. Hyperlipidemia. PROCEDURE PERFORMED: 10/14/2016, laparotomy, sigmoid colectomy, end colostomy and Richard pouch. Procedure performed by Dr. Julieth Cuenca. HOSPITAL COURSE: For details of admission history and physical please see dictated summary by Dr. Thomas. Briefly, the patient is an 80-year-old female who was brought to the emergency room by paramedics from the [facility] where she was residing because of long-standing dementia. She was found to have evidence of peritonitis. Surgical consultation was requested and the patient was seen by Dr. Julieth Cuenca who took her to the operating room after she received intravenous antibiotics. Following surgery, patient had a prolonged postoperative course being initially admitted to the intensive care unit with evidence of lactic acidosis. She was maintained on ertapenem and fluconazole. The patient remained extremely confused, though she did have a slow and steady recovery throughout her hospital stay. As her bowel function returned she was advanced in her diet. Antibiotics were continued until the day before discharge when they were stopped. Her temperature remained normal, her white blood cell count at time of antibiotic discontinuation had returned to normal, though she remained moderately anemic following surgery. She was restarted on iron which she had been on prior to admission to the hospital and the remainder of her medications were resumed. She was moderately somnolent in the few days prior to discharge and was on fairly high doses of OxyContin and oxycodone. These were weaned off and she was treated with Tylenol for pain. On the morning of discharge patient was somnolent, but arousable. Her incision was healing well with minimal proximal skin dehiscence. The colostomy was functioning normally. Her abdomen was nondistended. Patient will be transferred to a detention facility and will follow up with her primary care physician, Dr. Sara Lewis for ongoing medical management. The patient was restarted on Coumadin postoperatively and had reached therapeutic INR 2 days prior to discharge at which time her Lovenox was discontinued. She will continue on Coumadin as previously ordered 4 mg Friday and Friday and 2 mg on Friday, Friday, Friday, , Friday. Condition at time of discharge improved. Peace Bey MD, FACS /[id number]/MODL MTDD
[2016-10-31 08:40] VITALS: BP 142/79; PULSE 80; RESP 17; TEMP 98.2; O2SAT 97
[2016-10-31] MEDS: DULoxetine 60 MG CAP PO SCH (10:28)
[2016-10-31] MEDS: PANTOPRAZOLE SODIUM 40 MG TAB PO SCH (10:28)
[2016-10-31] MEDS: LOSARTAN POTASSIUM 50 MG TAB PO SCH (10:28)
[2016-10-31] MEDS: SENNOSIDES/DOCUSATE SODIUM TAB PO SCH (10:29)
[2016-10-31] MEDS: ARIPiprazole 5 MG TAB PO SCH (10:29)
[2016-10-31] MEDS: HYDROCHLOROTHIAZIDE 25 MG TAB PO SCH (10:29)
[2016-10-31] MEDS: BRIMONIDINE 0.15% 5 ML OPHT.BTL RTEYE SCH (10:31)
[2016-10-31] MEDS: WARFARIN SODIUM 2 MG TAB PO SCH (15:51)
--- NOTE | 2016-11-04 12:54 | PQFORM ---
PHYSICIAN QUERY FORM Needs Your Response This query form is being sent to you to assure this patient record is coded properly. Please respond to the question below: JAVA J2EE LEAD QUESTION: Dear Dr. Bey, It is documented in the Card Stripper progress notes dated 10/15, 10/16, 10/22 that this patient had the diagnosis of 'acute blood loss anemia.' Labs show patients HCT at 30.9 on 10/15, HCT 29.7 on 10/16, HCT 31.4 on 10/17, HCT 29.4 on 10/18, HCT 27.2 on 10/20 and HCT 27.4 on 10/29. After study, should the diagnosis of 'acute blood loss anemia' be included in the discharge summary? x Yes No Other more appropriate diagnosis Unable to determine Thank you SERGIO Baez HIM/Coding Dept [phone] INSTRUCTIONS FOR RESPONSE: Answer question by clicking on the "Edit Document" button. Move cursor to area below the stars. When complete, hit "Save." Click on the "Sign" button, then click "Sign" again. Type in your PIN and hit "Enter." MTDD
--- NOTE | 2016-11-04 13:06 | PQFORM ---
PHYSICIAN QUERY FORM Needs Your Response This query form is being sent to you to assure this patient record is coded properly. Please respond to the question below: LODGING MANAGER QUESTION: Dear Dr. Bey, In reviewing this patients medical record the diagnosis of 'Ileus' is documented in Dr. Cuenca's 10/16 SOAP note. Also documented in Dr. Cuenca's SOAP notes dated 10/21-10/23 the patient had 'Postoperative Ileus." In Dr. Starks Infectious disease progress note dated 10/23 the patient was diagnosed again with 'postoperative ileus'. After study, should the diagnosis of ' Postoperative Ileus' be included in the discharge summary? ___x___ Yes No Other more appropriate diagnosis Unable to determine Thank you SERGIO Baez HIM/Coding Dept [phone] INSTRUCTIONS FOR RESPONSE: Answer question by clicking on the "Edit Document" button. Move cursor to area below the stars. When complete, hit "Save." Click on the "Sign" button, then click "Sign" again. Type in your PIN and hit "Enter." MTDD
== END 2016-10-31 16:14 | DRG 854 ==
LOC: EDUNIT# → F2N 06:50 → F3N 10-17 15:41 → F1N 10-21 18:23
PROVIDERS: ADMIT Surgery; ATTEND Surgery
PROC: 02HV33Z Insertion of Infusion Device into Superior Vena Cava, Percutaneous Approach (ICD-10-PCS; 2016-10-14)
PROC: 0DTN0ZZ Resection of Sigmoid Colon, Open Approach (ICD-10-PCS; principal; 2016-10-14 03:30)
PROC: 0D1M0Z4 Bypass Descending Colon to Cutaneous, Open Approach (ICD-10-PCS; principal; 2016-10-14 03:30)
PROC: 30283B1 Transfusion of Nonautologous 4-Factor Prothrombin Complex Concentrate into Vein, Percutaneous Approach (ICD-10-PCS; 2016-10-14 03:30)
DX: A41.9 Sepsis, unspecified organism (principal); K57.20 Diverticulitis of large intestine with perforation and abscess without bleeding; N39.0 Urinary tract infection, site not specified; Q21.1 Atrial septal defect; E87.2 Acidosis; K91.89 Other postprocedural complications and disorders of digestive system; D62 Acute posthemorrhagic anemia; L89.151 Pressure ulcer of sacral region, stage 1; I10 Essential (primary) hypertension; F01.50 Vascular dementia, unspecified severity, without behavioral disturbance, psychotic disturbance, mood disturbance, and anxiety; R09.02 Hypoxemia; K21.9 Gastro-esophageal reflux disease without esophagitis; E89.0 Postprocedural hypothyroidism; E78.5 Hyperlipidemia, unspecified; Z86.73 Personal history of transient ischemic attack (TIA), and cerebral infarction without residual deficits; Z88.0 Allergy status to penicillin
CPT/HCPCS: 96374; 97110-GP; 97116-GP; 97163-GP; 97166-GO; 97530-GO; 97530-GP; 97535-GO; C1751; C9132; G8978-GP-CL; G8978-GP-CM; G8979-GP-CI; G8979-GP-CL; G8979-GP-CM; G8980-GP-CM; G8987-GO-CM; G8988-GO-CK; J1170; J1200; J1335; J1450; J1650; J2405; J2550; J2704; J2997; J3010; J3475; P9041; Q9967